=== PATIENT | male | born 1955 | race Caucasian/White ===

== ENCOUNTER → 2021-11-05 | Outpatient (CLI) | payer BC ==
--- NOTE | 2021-11-05 07:28 | CTL ---
EXAMINATION TYPE: CT Low Dose Lung DATE OF EXAM ORDERED: 11/05/2021 HISTORY: Long-term tobacco use. Lung cancer screening CT DLP: 100.[address] CTDI: 2.9 mGy Automated exposure control for dose reduction was used. SCREENING VISIT: Baseline COMPARISON: None TECHNIQUE: Low dose computed tomography scan was performed through the chest at 1 mm thick sections a nd reconstructed images in multiple planes at 1 mm and [address] DIAGNOSTIC QUALITY: Satisfactory FINDINGS: LUNG NODULES: None. LUNGS: COPD: Severity: None Fibrosis: Severity: None Lymph nodes: No greater than 1 cm Other findings: None RIGHT PLEURAL SPACE: Effusion: None Calcification: None Thickening: None Pneumothorax: None LEFT PLEURAL SPACE: Effusion: None Calcification: None Thickening: None Pneumothorax: None HEART: Heart Size: Upper limits of normal Coronary Calcification: Severe three-vessel coronary artery calcification and/or stents. Correlate cl inically. Pericardial Effusion: None OTHER FINDINGS: Upper abdomen: Liver is heterogeneously hypodense consistent with diffuse fatty infiltration. Bony thorax: Moderate multilevel degenerative spurring Supraclavicular region: None Other: Ascending aortic aneurysm up to 4.7 cm at level of right pulmonary artery series 5 image 28. IMPRESSION: No suspicious nodules. CT LUNG RAD AND CT CHEST RECOMMENDATION: Lung-Rad 1 Negative: Continue annual screening with LDCT in 12 months. S Modifier (other clinically significant findings): S Note is made of 4.7 cm ascending aortic aneurysm. Note is made of severe three-vessel coronary artery calcification and/or stents. Correlate clinically.
== END | disposition home or self-care (01) ==
LOC: RADCTMAIN 06:49
PROVIDERS: ATTEND Family Medicine
DX: Z12.2 Encounter for screening for malignant neoplasm of respiratory organs (principal); I71.2 Thoracic aortic aneurysm, without rupture; I25.10 Atherosclerotic heart disease of native coronary artery without angina pectoris; Z87.891 Personal history of nicotine dependence
CPT/HCPCS: 71271

== ENCOUNTER → 2021-11-05 | Outpatient (CLI) | payer BC ==
[2021-11-05 10:43] LABS: Basophils # (A) 0.03 X 10*3/uL (0.00-0.10); Basophils % (A) 0.4 %; Eosinophils # (A) 0.06 X 10*3/uL (0.04-0.35); Eosinophils % (A) 0.8 %; HCT 41.6 % (39.6-50.0); HGB 13.8 g/dL (13.0-17.0); Immature Grans, Automated 0.4 %; Lymphocytes # (A) 2.71 X 10*3/uL (0.90-5.00); Lymphocytes % (A) 34.8 %; MCH 33.7 pg (27.0-32.0); MCHC 33.2 g/dL (32.0-37.0); MCV 101.5 fL (80.0-97.0); Mean Platelet Volume 9.7 fL (9.5-12.2); Monocytes # (A) 0.84 X 10*3/uL (0.20-1.00); Monocytes % (A) 10.8 %; NRBC Per 100 WBC 0 /100 WBCS (0.0-0.0); Neutrophils # (A) 4.11 X 10*3/uL (1.80-7.70); Neutrophils % (A) 52.8 %; Platelet Count 204 X 10*3/uL (140-440); RDW 13.6 % (11.5-14.5); WBC 7.78 X 10*3/uL (4.50-10.00)
[2021-11-05 10:58] LABS: ALT 111 U/L (10-49); AST 142 U/L (14-35); African American GFR (CKD) 109.4 (60.0-200.0); Albumin 4.9 g/dL (3.8-4.9); Albumin/Globulin Ratio 1.96 (1.60-3.17); Alkaline Phosphatase 74 U/L (41-126); C Reactive Protein <0.30 mg/dL (0.00-0.80); Calcium 9.9 mg/dL (8.7-10.3); Carbon Dioxide 26.6 mmol/L (20.0-27.5); Chloride 101 mmol/L (96-109); Globulin 2.5 g/dL (1.6-3.3); Glucose 90 mg/dL (70-110); Non-African American GFR(CKD) 94.4 (60.0-200.0); Sodium 141 mmol/L (135-145); Total Protein 7.4 g/dL (6.2-8.2)
[2021-11-05 15:12] LABS: Erythrocyte Sedimentation Rate 9 mm/Hr (0-20)
[2021-11-05 17:31] LABS: Gliadin AB IgA, Deaminated NEGATIVE (NEGATIVE); Gliadin AB IgA, Unit 1.1 U/mL; Gliadin AB IgG, Deaminated NEGATIVE (NEGATIVE); Gliadin AB IgG, Unit <0.4 U/mL
== END | disposition home or self-care (01) ==
LOC: LABWHC1 07:07
PROVIDERS: ATTEND Nurse Practitioner Family
DX: K52.9 Noninfective gastroenteritis and colitis, unspecified (principal)
CPT/HCPCS: 36415; 80053; 83516; 85025; 85652; 86140

== ENCOUNTER → 2021-12-10 | Outpatient (CLI) | payer BC ==
--- NOTE | 2021-12-10 14:20 | US ---
EXAMINATION TYPE: US abdomen complete DATE OF EXAM: 12/10/2021 COMPARISON: NONE CLINICAL HISTORY: R74.01 ELEVATED LIVER TRANSAMINASE LEVELS. elevated liver enzymes EXAM MEASUREMENTS: Liver Length: 13.2 cm Gallbladder Wall: .2 cm CBD: .3 cm Spleen: 9.5 cm Right Kidney: 9.9 x 5.7 x 4.9 cm Left Kidney: 10.8 x 5.7 x 4.6 cm Pancreas: wnl Liver: Increased attenuation Gallbladder: No stones seen Evidence for sonographic Gonzalez's sign: No CBD: wnl Spleen: wnl Right Kidney: Cystic area upper pole seen measuring 1.1 x 1.1 x 1.4 cm. Left Kidney: wnl Upper IVC: wnl Abd Aorta: wnl IMPRESSION: 1. Right renal simple appearing cyst.
[2021-12-10 18:49] LABS: Ceruloplasmin 22.9 mg/dL (20.0-60.0)
[2021-12-10 18:58] LABS: % Iron Saturation 40.16 (15.00-50.00); African American GFR (CKD) 108.2 (60.0-200.0); Albumin/Globulin Ratio 2.08 (1.60-3.17); Anion Gap 16.4 mmol/L (10.00-18.00); BUN/Creat Ratio 12.06 Ratio (12.00-20.00); Blood Urea Nitrogen 9.8 mg/dL (9.0-27.0); Calcium 9.6 mg/dL (8.7-10.3); Carbon Dioxide 25.2 mmol/L (20.0-27.5); Globulin 2.4 g/dL (1.6-3.3); Non-African American GFR(CKD) 93.3 (60.0-200.0); Potassium 4.6 mmol/L (3.5-5.5); Total Bilirubin 0.7 mg/dL (0.30-1.20); Total Protein 7.3 g/dL (6.2-8.2)
[2021-12-10 19:00] LABS: Hepatitis B Surface Antigen Nonreactive (Nonreactive); Hepatitis C IgG Antibody Nonreactive (Nonreactive)
== END | disposition home or self-care (01) ==
LOC: RADUSWWP 12:32
PROVIDERS: ATTEND Internal Medicine Gastroenterology
DX: R74.01 Elevation of levels of liver transaminase levels (principal); N28.1 Cyst of kidney, acquired
CPT/HCPCS: 76700; 80053; 82103; 82390; 82728; 83516; 83540; 83550; 84165; 86038; 86803; 87340

== ENCOUNTER → 2022-03-25 | Outpatient (CLI) | payer BC, MEDICARE ==
[2022-03-25 18:20] LABS: Basophils # (A) 0.03 X 10*3/uL (0.00-0.10); Basophils % (A) 0.4 %; Eosinophils # (A) 0.14 X 10*3/uL (0.04-0.35); Eosinophils % (A) 1.6 %; HCT 39.5 % (39.6-50.0); Immature Grans, Automated 0.4 %; Lymphocytes # (A) 1.96 X 10*3/uL (0.90-5.00); Lymphocytes % (A) 22.9 %; MCH 34.1 pg (27.0-32.0); MCHC 35.4 g/dL (32.0-37.0); MCV 96.3 fL (80.0-97.0); Mean Platelet Volume 9.7 fL (9.5-12.2); Monocytes # (A) 0.78 X 10*3/uL (0.20-1.00); Monocytes % (A) 9.1 %; NRBC Per 100 WBC 0 /100 WBCS (0.0-0.0); Neutrophils # (A) 5.62 X 10*3/uL (1.80-7.70); Neutrophils % (A) 65.6 %; Platelet Count 165 X 10*3/uL (140-440); RDW 12.6 % (11.5-14.5); WBC 8.56 X 10*3/uL (4.50-10.00)
[2022-03-25 19:30] LABS: African American GFR (CKD) 108.6 (60.0-200.0); Albumin 4.7 g/dL (3.8-4.9); Albumin/Globulin Ratio 1.88 (1.60-3.17); Anion Gap 13.4 mmol/L (10.00-18.00); BUN/Creat Ratio 7.25 Ratio (12.00-20.00); Blood Urea Nitrogen 5.8 mg/dL (9.0-27.0); Calcium 9.4 mg/dL (8.7-10.3); Carbon Dioxide 25.6 mmol/L (20.0-27.5); Globulin 2.5 g/dL (1.6-3.3); Non-African American GFR(CKD) 93.7 (60.0-200.0); Potassium 5.2 mmol/L (3.5-5.5); Total Bilirubin 0.6 mg/dL (0.30-1.20); Total Protein 7.2 g/dL (6.2-8.2)
== END | disposition home or self-care (01) ==
LOC: LABWHC1 10:42
PROVIDERS: ATTEND Internal Medicine Interventional Cardiology
DX: I25.10 Atherosclerotic heart disease of native coronary artery without angina pectoris (principal); R06.09 Other forms of dyspnea; R74.01 Elevation of levels of liver transaminase levels; R77.8 Other specified abnormalities of plasma proteins
CPT/HCPCS: 36415; 80053; 85025; 85730

== ENCOUNTER → 2022-09-30 | Outpatient (CLI) | payer BC, MEDICARE ==
[2022-09-30 15:00] LABS: ALT 69 U/L (10-49); AST 90 U/L (14-35); Chol/HDL Ratio 1.85 Ratio; LDL Cholesterol,Calculated 51.2 mg/dL (0.0-131.0); VLDL Calculation 19.84 mg/dL (5.00-40.00)
== END | disposition home or self-care (01) ==
LOC: LABWHC1 08:06
PROVIDERS: ATTEND Internal Medicine Interventional Cardiology
DX: E78.2 Mixed hyperlipidemia (principal)
CPT/HCPCS: 36415; 80061; 84450; 84460

== ENCOUNTER → 2022-10-21 | Outpatient (CLI) | payer BC, MEDICARE ==
[2022-10-21 15:52] LABS: African American GFR (CKD) 91.1 (60.0-200.0); Albumin 4.8 g/dL (3.8-4.9); Albumin/Globulin Ratio 1.88 (1.60-3.17); Anion Gap 10.8 mmol/L (10.00-18.00); BUN/Creat Ratio 20.1 Ratio (12.00-20.00); Blood Urea Nitrogen 20.1 mg/dL (9.0-27.0); Calcium 10.4 mg/dL (8.7-10.3); Carbon Dioxide 27.4 mmol/L (20.0-27.5); Globulin 2.5 g/dL (1.6-3.3); Non-African American GFR(CKD) 78.6 (60.0-200.0); Potassium 4.5 mmol/L (3.5-5.5); Total Bilirubin 0.4 mg/dL (0.30-1.20); Total Protein 7.3 g/dL (6.2-8.2)
== END | disposition home or self-care (01) ==
LOC: LABWHC1 07:52
PROVIDERS: ATTEND Family Medicine
DX: R94.5 Abnormal results of liver function studies (principal)
CPT/HCPCS: 36415; 80053

== ENCOUNTER → 2023-08-02 | Outpatient (CLI) | payer BC, MEDICARE ==
--- NOTE | 2023-08-04 10:50 | MR ---
EXAMINATION TYPE: MR shoulder RT wo con DATE OF EXAM: 08/02/2023 COMPARISON: None HISTORY: Right shoulder pain since fall on 02-03-23. TECHNIQUE: Multiplanar, multisequence imaging of the right shoulder is performed without contrast. FINDINGS: There is a nearly healed nondisplaced avulsion fracture of the greater tuberosity of the left humerus . There is marked osteoarthritic change of the AC joint with marked shoulder impingement and superior subluxation of the glenohumeral joint. There is a complete full-thickness tear of the supraspinatus tendon with retraction of the musculoten dinous junction medially. There is intrasubstance tearing of the infraspinatus muscle with mild retra ction medially. The subscapularis tendon is intact. There is abnormal signal intensity within the proximal long head of the biceps consistent with partia l tear but the biceps anchor is intact. There is a small left glenohumeral joint effusion. Grossly the cartilaginous labrum is intact. There is mild fluid in the subcutaneous deltoid bursa. IMPRESSION: 1. Remote and nearly healed nondisplaced fracture of the greater tuberosity of the humerus. 2. Marked shoulder impingement with superior subluxation of the glenohumeral joint and marked degener ation of the AC joint. 3. Rotator cuff tears involving the supraspinatus and infraspinatus tendons as described above. 4. Small glenohumeral joint effusion and small amount of fluid in the deltoid bursa. 5. Biceps anchor is intact but there is intrasubstance tearing of the proximal aspect of the tendon.
== END | disposition home or self-care (01) ==
LOC: RADMRIMAIN 15:16
PROVIDERS: ATTEND Orthopaedic Surgery
DX: M75.101 Unspecified rotator cuff tear or rupture of right shoulder, not specified as traumatic (principal); M25.811 Other specified joint disorders, right shoulder; M67.813 Other specified disorders of tendon, right shoulder; M25.411 Effusion, right shoulder

== ENCOUNTER 2023-10-06 05:45 | Day surgery (SDC) | payer BC, MEDICARE ==
[2023-10-03 09:59] VITALS: BMI 28.0
--- NOTE | 2023-10-05 08:48 | P.HPOR ---
History of Present Illness H&P Date: 10/05/23 Chief Complaint: Right shoulder pain The patient is a 67-year-old retired gentleman who presents with right shoulder pain after an injury January 2023 after a fall. He is having pain with overhead activity and at night. He's tried medications along with home exercises and inj ection without much relief. He notes daily pain that limits him. Review of Systems As per HPI Past Medical History Past Medical History: Coronary Artery Disease (CAD), Hyperlipidemia, Hypertension, Osteoarthritis (OA), Sleep Apnea/CPAP/BIPAP Additional Past Medical History / Comment(s): insomnia, lumbar radiculopathy, uses CPAP few times/week, spinal stenosis, missed a step & fell 01/29 landing on Rt. hip, Rt.shoulder,LOC x 30 seconds History of Any Multi-Drug Resistant Organisms: None Reported Past Surgical History: Appendectomy, Heart Catheterization With Stent Additional Past Surgical History / Comment(s): Rt. great toe fusion, partial Rt. hip replacement 01/29, Lt. rotator cuff repair Past Anesthesia/Blood Transfusion Reactions: No Reported Reaction Date of Last Stent Placement:: 03/30/22 Smoking Status: Former smoker - Past Family History Father Family Medical History: Congestive Heart Failure (CHF) Mother Family Medical History: Coronary Artery Disease (CAD) Additional Family Medical History / Comment(s): CABG Brother(s) Additional Family Medical History / Comment(s): 2 briothers and 1 sister CABG Medications and Allergies Home Medications Medication Instructions Recorded Confirmed Type Aspirin [Adult Low Dose Aspirin EC] 81 mg PO DAILY 10/03/23 10/03/23 History Atorvastatin [Lipitor] 40 mg PO DAILY 10/03/23 10/03/23 History Clopidogrel [Plavix] 75 mg PO DAILY 10/03/23 10/03/23 History Dicyclomine [Bentyl] 20 mg PO QID PRN 10/03/23 10/03/23 History Escitalopram [Lexapro] 20 mg PO QAM 10/03/23 10/03/23 History Ezetimibe [Zetia] 10 mg PO DAILY 10/03/23 10/03/23 History Folic Acid 1 mg PO DAILY 10/03/23 10/03/23 History Ibuprofen [Motrin] 800 mg PO Q8H PRN 10/03/23 10/03/23 History Nitroglycerin Sl Tabs [Nitrostat] 0.4 mg SUBLINGUAL Q5M PRN 10/03/23 10/03/23 History Pantoprazole [Protonix] 40 mg PO DAILY 10/03/23 10/03/23 History Sildenafil Citrate [Viagra] 100 mg PO DAILY PRN 10/03/23 10/03/23 History lisinopriL [Zestril] 5 mg PO QAM 10/03/23 10/03/23 History methocarbamoL 750 mg PO BID PRN 10/03/23 10/03/23 History ondansetron HCL [Zofran] 8 mg PO Q8HR PRN 10/03/23 10/03/23 History traZODone HCL [Desyrel] 100 mg PO HS 10/03/23 10/03/23 History Allergies Allergy/AdvReac Type Severity Reaction Status Date / Time No Known Allergies Allergy Verified 10/03/23 08:50 Physical Examination - Shoulder right Tenderness with palpation: anterior, bicipital groove Pain: with abduction, with forward flexion ROM: abduction: 140 degrees ROM: internal rotation: lower lumbar ROM: external rotation: 50 degrees Crepitus with motion: Yes Strength: abduction: 4/5 Strength: external rotation: 4/5 Tests: internal impingement tests: positive, external impingment tests: positive Results The patient is a well-developed well-nourished male approximately 5 foot 9, 185 pounds of mesomorphic habitus. HEENT exam is nonfocal, neck is supple. He's tender about the right shoulder anterior subacromial space. Moderate crepitus is noted. Impingement test, Neer test and speed test are positive. His distal neurovascular exam appears intact in the right upper extremity. - Diagnostic results Shoulder MRI: image reviewed (Right shoulder MRI shows evidence of a rotator cuff tear along with a cold greater tuberosity fracture. Proximal biceps intrasubstance tearing is also noted.) Assessment and Plan Assessment: Right symptomatic rotator cuff tear Right proximal bicipital tendinosis Plan: I talked to the patient regarding his condition along with treatment options. At this point he remains quite symptoms despite previous conservative measures. After a thorough discussion he opts to proceed with surgery. We'll plan to proceed with right shoulder arthroscopy with probable subacromial decompression, rotator cuff debridement versus repair, possible biceps tenotomy versus tenodesis. We will likely perform that as an outpatient procedure. Risks and benefits were discussed at length in layman's terms. We will likely reinstitute his Plavix postoperatively.
[2023-10-06] MEDS ORDERED: ONDANSETRON 4 MG/2 ML VIAL ONE (06:29)
[2023-10-06] MEDS: LACTATED RINGERS 1,000 ML IV SCH (06:37)
[2023-10-06] MEDS: DEXAMETHASONE SOD PHOSPHATE 4 MG/ML 1 ML VIAL IV ONE (06:38)
[2023-10-06] MEDS: ONDANSETRON 4 MG/2 ML VIAL IVP ONE (06:38)
[2023-10-06] MEDS: MIDAZOLAM 2 MG/2 ML VIAL IVP ONE (06:43)
--- NOTE | 2023-10-06 06:56 | P.ANPRN ---
Procedure Note - Anesthesia - Nerve Block Performed Right Interscalene Single Time Out Performed: Yes Date of Procedure: 10/06/23 Procedure Start Time: 06:46 Procedure Stop Time: 06:52 Location of Patient: PreOp Indication: Acute Post-Operative Pain, Dx/Pain Location (Right shoulder pain ), Requested by Surgeon Sedation Type: Sedate with meaningful contact maintained Preparation: Sterile Prep Position: Supine Catheter: None Needle Types: Pajunk Needle Gauge: 21 Ultrasound used to visualize needle placement: Yes Ultrasound used to observe medication spread: Yes Injectate: 0.5% Ropivacaine (see comment for volume) (20ml with 4mg dexamethasone) Blood Aspirated: No Pain Paresthesia on Injection Noted: No Resistance on Injection: Normal
[2023-10-06] MEDS ORDERED: MIDAZOLAM 2 MG/2 ML VIAL IV PRN (07:00)
[2023-10-06] MEDS ORDERED: HYDROmorphone 0.5 MG/0.5 ML SYRINGE IVP PRN (07:00)
[2023-10-06 07:11] VITALS: RESP 16
[2023-10-06] MEDS ORDERED: PROPOFOL 10 MG/ML 20 ML VIAL IV ONE (07:29)
[2023-10-06] MEDS ORDERED: PHENYLEPHRINE 10 MG/ML VIAL ONE (07:29)
[2023-10-06] MEDS ORDERED: NEOSTIGMINE 1 MG/ML 10 ML VIAL ONE (07:29)
[2023-10-06] MEDS ORDERED: DEXAMETHASONE SOD PHOSPHATE 4 MG/ML 1 ML VIAL ONE (07:29)
[2023-10-06] MEDS ORDERED: ROPIVACAINE 5 MG/ML 30 ML VIAL ONE (07:29)
[2023-10-06] MEDS ORDERED: fentaNYL (PF) 50 MCG/ML 2 ML AMP ONE (07:29)
[2023-10-06] MEDS ORDERED: PHENYLEPHRINE-0.9% NACL SYG 1,000 MCG/10 ML SYRINGE ONE (07:29)
[2023-10-06] MEDS ORDERED: MIDAZOLAM 2 MG/2 ML VIAL ONE (07:29)
[2023-10-06] MEDS ORDERED: ROCURONIUM 10 MG/ML (5 ML VIAL) IV ONE (07:29)
[2023-10-06] MEDS ORDERED: LIDOCAINE 1% INJ 10MG/ML (20 ML MDV) ONE (07:29)
[2023-10-06] MEDS ORDERED: GLYCOPYRROLATE 0.2 MG/ML 2 ML VIAL ONE (07:29)
[2023-10-06] MEDS ORDERED: SUCCINYLCHOLINE CHLORIDE 200 MG/10 ML VIAL IV ONE (07:29)
[2023-10-06] MEDS: EPINEPHrine (PF) 1 ML in SODIUM CHLORIDE 0.9% IRRIGATIO 3,000 ML IRRIGATION ONE ×4 (07:33)
[2023-10-06] MEDS: LACTATED RINGERS 1,000 ML IV ONE (09:14)
--- NOTE | 2023-10-06 09:39 | P.OP ---
Date of Procedure: 10/06/23 Preoperative Diagnosis: Symptomatic right rotator cuff tear/impingement Postoperative Diagnosis: 5 cm rotator cuff tear/acromioclavicular joint arthritis/proximal biceps rupture Procedure(s) Performed: Right shoulder arthroscopic subacromial decompression/distal clavicular resection/rotator cuff repair Implants: Arthrex 4.75 mm swivel lock anchor 2, 5.5 mm swivel lock anchor 2 Anesthesia: RENETTA, regional Surgeon: Lavon Adams Condenser Tester #1: Geovani Campos Estimated Blood Loss (ml): 10 Pathology: none sent Condition: stable Disposition: PACU Indications for Procedure: The patient's a 67-year-old male who presents with progressive right shoulder pain and weakness after a previous injury despite conservative measures. He discussion of the risks and benefits of operative intervention versus continued conservative measures was made with patient. He opted to proceed with surgery. Operative risks to include infection, neurovascular injury, development of blood clots, possible tendon rerupture, possible postoperative stiffness, possible need for subsequent procedures was discussed. Informed consent was obtained. Operative Findings: As below Description of Procedure: The patient was brought to the operating room, and after induction of general anesthesia was placed in a beachchair position. A preoperative interscalene block was placed for postoperative analgesia. I examined the [facility] shoulder. There was no gross block to passive motion or gross glenohumeral instability. The [facility] upper extremity was prepped and draped in normal fashion. The bony outlines the acromion, distal clavicle, and coracoid process were outlined with a skin marker. The glenohumeral joint was inflated with 50 mL of saline utilizing a spinal needle from posterior approach. A posterior portal was made through a 5 mm skin incision 1 cm medial and inferior to the posterior lateral border time. A blunt trocar was used to easily into the joint. Diagnostic arthroscopy was performed. An anterior portal was made just lateral to the coracoid process entering the joint above the subscapularis tendon. The subscapularis tendon appeared to be intact. Anterior labrum was intact. The inferior recess was inspected. The posterior labrum was intact. The proximal biceps was noted to have previously been ruptured. The stump was debrided with a motorized shaver on the superior labrum back to stable base. On inspection the rotator cuff, a large retracted tear involving the supraspinatus and infraspinatus was noted. The arthroscope was then placed into the subacromial space. A lateral portal was made 2 centimeters inferior to the anterior lateral border of the acromion. The rotator cuff was then mobilized with a traction suture. I was able to bring this back to the medial aspect of the greater tuberosity. The soft tissue on the undersurface of the acromion was debrided with a motorized shaver and electrocautery clearly defining the anterior medial and lateral borders as well as the distal clavicle. An anterior inferior acromioplasty was performed with a motorized layla starting anterolateral, then extending this posteriorly, then extending this medially. I converted to a flat acromion and this was verified in the posterior and lateral viewing portals. Significant distal clavicular hypertrophy was noted impinging the subacromial space. The distal 8 mm of the clavicle was resected with motorized layla.The greater tuberosity was lightly decorticating with a shaver down to a bleeding bony surface. An accessory superior lateral portal was made just off the lateral edge of the acromion for anchor placement. 2 anchors were then placed just off the articular surface with the appropriate starting awl. 4.75 mm anchors preloaded with #2 fiber tape were placed. Good purchase was obtained. These fiber tapes were then passed the rotator cuff with a scorpion suture passer. A lateral row was created crisscrossing these tapes. 5.5 mm swivel lock anchors x2 were placed laterally. Good purchase was obtained. Final arthroscopic view showed adequate compression at the footprint. The arthroscope was then removed. The portals were closed with simple 3-0 nylon sutures. A sterile dressing was applied in addition to an abductor brace. The patient was then awoken from general anesthesia and transferred to recovery room in good condition. Blood loss was estimated at 10 mL. No complications were incurred. Sponge and needle counts were correct in the case. Geovani MURDOCK assisted and the major components of the case to include arm positioning, anchor placement, and rotator cuff repair.
[2023-10-06 10:21] VITALS: TEMP 97
[2023-10-06 10:59] VITALS: BP 110/71
[2023-10-06 11:00] VITALS: PULSE 96
== END 2023-10-06 11:15 | disposition home or self-care (01) ==
LOC: OR 05:45
PROVIDERS: ATTEND Orthopaedic Surgery
DX: M75.41 Impingement syndrome of right shoulder (principal); M75.101 Unspecified rotator cuff tear or rupture of right shoulder, not specified as traumatic; M19.011 Primary osteoarthritis, right shoulder; G89.18 Other acute postprocedural pain; I10 Essential (primary) hypertension; E78.5 Hyperlipidemia, unspecified; I25.10 Atherosclerotic heart disease of native coronary artery without angina pectoris; G47.33 Obstructive sleep apnea (adult) (pediatric); Z90.49 Acquired absence of other specified parts of digestive tract; Z96.641 Presence of right artificial hip joint; Z87.891 Personal history of nicotine dependence; Z82.49 Family history of ischemic heart disease and other diseases of the circulatory system; Z79.82 Long term (current) use of aspirin; Z79.02 Long term (current) use of antithrombotics/antiplatelets; Z79.899 Other long term (current) drug therapy; Z98.890 Other specified postprocedural states
CPT/HCPCS: 29827; 29826; 29824; 64415; C1713 ×3; C1894; J2250; J0330; J1100; J2710; J0690; J2405; J0171; J2001; J3010; J2795; J2704; J2371 ×2

== ENCOUNTER → 2023-11-10 | Outpatient (CLI) | payer BC, MEDICARE ==
[2023-11-11 03:48] LABS: HCT 38.3 % (39.6-50.0); HGB 13.1 g/dL (13.0-17.0); MCH 34.2 pg (27.0-32.0); MCHC 34.2 g/dL (32.0-37.0); Mean Platelet Volume 9.3 FL (9.5-12.2); NRBC Per 100 WBC 0 X 10*3/uL (0.00-0.01); Platelet Count 259 X 10*3/uL (140-440); RBC 3.83 X 10*6/uL (4.40-5.60); RDW 13.1 % (11.5-14.5)
[2023-11-11 04:23] LABS: Blood Urea Nitrogen 11.6 mg/dL (9.0-27.0); Calcium 9.5 mg/dL (8.7-10.3); Chloride 95 mmol/L (96-109); Glucose 79 mg/dL (70-110); Potassium 4.2 mmol/L (3.5-5.5); Sodium 134 mmol/L (135-145)
[2023-11-11 04:42] LABS: NT-Pro-B-Type Natriuretic Pept 51 pg/mL (0-125)
== END | disposition home or self-care (01) ==
LOC: LABWHC1 14:13
PROVIDERS: ATTEND Nurse Practitioner Acute Care
DX: R06.02 Shortness of breath (principal)
CPT/HCPCS: 36415; 80048; 83880; 84484; 85027; 85379

== ENCOUNTER → 2023-11-15 | Outpatient (CLI) | payer BC, MEDICARE ==
--- NOTE | 2023-11-15 19:12 | CA ---
Transthoracic Echo Report Name: Keaton Powers Age: 67 Gender: M : 1955 Exam Date: 11/15/2023 15:29 Exam Location: [place] Ht (in): 72 Wt (lb): 185 Ordering Physician: Mannie Resendiz DO ([email or web address]) Attending/Referring Phys: [employer] Field Service Technician Kamille Cadet RDCS Procedure CPT: Indications: R06.02 SHORTNESS OF BREATH Cardiac Hx: Technical Quality: Contrast 1: Total Dose (mL): Contrast 2: Total Dose (mL): MEASUREMENTS (Male / Female) Normal Values 2D ECHO LV Diastolic Diameter PLAX 5.0 cm 4.2 - 5.9 / 3.9 - 5.3 cm LV Systolic Diameter PLAX 3.1 cm IVS Diastolic Thickness 0.9 cm 0.6 - 1.0 / 0.6 - 0.9 cm LVPW Diastolic Thickness 0.9 cm 0.6 - 1.0 / 0.6 - 0.9 cm LV Relative Wall Thickness 0.4 LA Systolic Diameter LX 3.0 cm 3.0 - 4.0 / 2.7 - 3.8 cm LV Diastolic Volume MOD 4C 102.5 cm??? LV Systolic Volume MOD 4C 46.7 cm??? LV Ejection Fraction MOD 4C 54.5 % LV Diastolic Length 4C 8.8 cm LV Systolic Length 4C 7.2 cm LV Diastolic Volume MOD 2C 108.3 cm??? LV Systolic Volume MOD 2C 54.1 cm??? LV Ejection Fraction MOD 2C 50.1 % LV Diastolic Length 2C 8.9 cm LV Systolic Length 2C 7.7 cm M-MODE Aortic Root Diameter MM 4.0 cm LA Systolic Diameter MM 2.5 cm LA Ao Ratio MM 0.6 DOPPLER AV Peak Velocity 118.0 cm/s AV Peak Gradient 5.6 mmHg AV Mean Velocity 85.5 cm/s AV Mean Gradient 3.3 mmHg AV Velocity Time Integral 30.4 cm AI Peak Velocity 422.2 cm/s AI Peak Gradient 71.3 mmHg AI Pressure Half Time 1022.1 ms LVOT Peak Velocity 76.7 cm/s LVOT Peak Gradient 2.4 mmHg LVOT Velocity Time Integral 16.4 cm Mitral E Point Velocity 36.3 cm/s Mitral A Point Velocity 67.3 cm/s Mitral E to A Ratio 0.5 MV Deceleration Time 316.7 ms TR Peak Velocity 232.8 cm/s TR Peak Gradient 21.7 mmHg FINDINGS Left Ventricle Left ventricular ejection fraction is estimated at 50-55 %. Left ventricular wall thickness normal. No obvious regional wall motion abnormalities. Left ventricular cavity size normal. Right Ventricle Normal right ventricular size and function. Right ventricular systolic pressure within normal limits. Right Atrium Normal right atrial size. Left Atrium Normal left atrial size. Mitral Valve Structurally normal mitral valve. Aortic Valve Trileaflet aortic valve. Trace to mild aortic regurgitation. No aortic stenosis. Tricuspid Valve Structurally normal tricuspid valve. Trace to mild tricuspid regurgitation. Pulmonic Valve Structurally normal pulmonic valve. Trace pulmonic regurgitation. Pericardium No pericardial or pleural effusion. Aorta Moderately dilated aortic annulus. CONCLUSIONS Technically difficult study for interpretation was poorly visualized endocardial Normal LV systolic function Mild aortic regurgitation Previewed by: Dr. Federico Mejia MD (Electronically Signed) Final Date: 15 Nov 2023 19:12
== END | disposition home or self-care (01) ==
LOC: RADECHMAIN 14:54
PROVIDERS: ATTEND Internal Medicine
DX: I35.1 Nonrheumatic aortic (valve) insufficiency (principal); R06.02 Shortness of breath
CPT/HCPCS: 93306

== ENCOUNTER → 2024-03-21 | Outpatient (CLI) | payer BC, MEDICARE ==
[2024-03-21 15:23] LABS: Basophils # (A) 0.04 X 10*3/uL (0.00-0.10); Basophils % (A) 0.5 %; Eosinophils # (A) 0.02 X 10*3/uL (0.04-0.35); Eosinophils % (A) 0.2 %; HCT 40.7 % (39.6-50.0); HGB 13.8 g/dL (13.0-17.0); Lymphocytes # (A) 1.46 X 10*3/uL (0.90-5.00); Lymphocytes % (A) 17.2 %; MCHC 33.9 g/dL (32.0-37.0); MCV 97.4 FL (80.0-97.0); Mean Platelet Volume 9.2 FL (9.5-12.2); Monocytes # (A) 0.71 X 10*3/uL (0.20-1.00); Monocytes % (A) 8.4 %; NRBC Per 100 WBC 0 X 10*3/uL (0.00-0.01); Neutrophils # (A) 6.23 X 10*3/uL (1.80-7.70); Neutrophils % (A) 73.3 %; Platelet Count 265 X 10*3/uL (140-440); RBC 4.18 X 10*6/uL (4.40-5.60); RDW 13.2 % (11.5-14.5); WBC 8.49 X 10*3/uL (4.50-10.00)
[2024-03-21 15:30] LABS: ALT 44 U/L (10-49); AST 71 U/L (14-35); Albumin 4.6 g/dL (3.8-4.9); Albumin/Globulin Ratio 1.64 Ratio (1.60-3.17); Alkaline Phosphatase 100 U/L (41-126); Blood Urea Nitrogen 9.7 mg/dL (9.0-27.0); Calcium 9.8 mg/dL (8.7-10.3); Carbon Dioxide 23.5 mmol/L (21.6-31.8); Chloride 99 mmol/L (96-109); Chol/HDL Ratio 2.03 Ratio; Globulin 2.8 g/dL (1.6-3.3); Glucose 100 mg/dL (70-110); LDL Cholesterol,Calculated 67.5 mg/dL (0.0-131.0); Potassium 4.1 mmol/L (3.5-5.5); Sodium 139 mmol/L (135-145); Total Protein 7.4 g/dL (6.2-8.2)
== END | disposition home or self-care (01) ==
LOC: LABWHC1 08:16
PROVIDERS: ATTEND Family Medicine
DX: Z00.00 Encounter for general adult medical examination without abnormal findings (principal)
CPT/HCPCS: 36415; 80053; 80061; 85025

== ENCOUNTER 2024-03-29 10:03 | Day surgery (SDC) | payer BC, MEDICARE ==
[2024-03-26 10:39] VITALS: BMI 28.0
[~2024-03-29 10:03] MED LIST: ALPRAZolam 0.25 MG TAB PO PRN; ALPRAZolam 0.5 MG TAB PO PRN; ASPIRIN 325 MG TAB PO STA; HEPARIN SODIUM,PORCINE (1 ML) 2,500 UNIT in SODIUM CHLORIDE 0.9% 250 ML IRRIGATION PRN; HEPARIN SODIUM,PORCINE 10,000 UNIT in SODIUM CHLORIDE 0.9% 1,000 ML IRRIGATION PRN; NITROGLYCERIN SL TABS 0.4 MG TAB SUBLINGUAL PRN
[2024-03-29] MEDS: SODIUM CHLORIDE 0.9% 1,000 ML in EMPTY BAG 1 BAG IV SCH (10:09)
[2024-03-29] MEDS: IV FLUID CONTINUATION 1,000 ML IV ONE (10:13)
[2024-03-29 10:20] VITALS: RESP 16; TEMP 98.3
[2024-03-29] MEDS: MIDAZOLAM 2 MG/2 ML VIAL IVP ONE (12:15)
[2024-03-29] MEDS: fentaNYL (PF) 50 MCG/ML 2 ML AMP IVP ONE (12:15)
[2024-03-29] MEDS: LIDOCAINE 1% INJ 10MG/ML (20 ML MDV) SQ ONE (12:22)
[2024-03-29] MEDS: VERAPAMIL SYRINGE (5 MG/10 ML) INTRAARTER ONE (12:24)
[2024-03-29] MEDS: HEPARIN SODIUM 1,000 UN/ML (10ML VL) IVP ONE (12:29)
[2024-03-29] MEDS: IOPAMIDOL-370 100ML BTL INJ ONE (12:43)
--- NOTE | 2024-03-29 12:50 | P.CARDCATH ---
Description of Procedure: PROCEDURES PERFORMED: Left heart catheterization, bilateral coronary angiography, ultrasound guided arterial access INDICATION: unstable angina CONSENT:I have discussed the risks, benefits and alternative therapies for the above-mentioned procedure and for both sedation/analgesia as well as necessary blood product administration, if indicated, as they pertain to this patient. The patient has indicated understanding and acceptance of the risks and procedures discussed. PROCEDURE: After the risks, benefits and alternatives of the above mentioned procedure explained in detail with the patient, informed consent was obtained. Patient was taken to the catheterization lab and prepped and draped in usual fashion. Ultrasound guidance was used to assess for arterial access. 1% lidocaine was used to anesthetize the right radial artery. A 6-Nigerien sheath was placed in the right radial artery using modified Seldinger technique and ultrasound guidance. There was some tortuosity of the right subclavian however able to cannulate. Left coronary angiography was performed with a 5-Nigerien JL 3.5 catheter and right coronary angiography was performed with a 5-Nigerien FR5 catheter in various views. A 5-Nigerien FR5 catheter was inserted into the left ventricle and pressure measurements were obtained. The right radial sheath was removed and a TR band was placed with hemostasis achieved. The patient tolerated the procedure well. Patient was transported back to the post catheterization holding area in stable condition. Conscious Sedation: Patient was monitored under the direct supervision of myself for conscious sedation using Versed and fentanyl for a total duration of [] minutes HEMODYNAMICS: Aorta: 162/78 LV: 144/12, LVEDP 26 SELECTIVE CORONARY ARTERIOGRAPHY: LEFT MAIN: The left main is a large caliber vessel which bifurcates into the LAD and circumflex. There is mild diffuse 20-30% left main stenosis LEFT ANTERIOR DESCENDING CORONARY ARTERY: LAD is a large caliber vessel which wraps around to the apex. There is a mid LAD stent which is patent with a more proximal 30-40% stenosis. There is 30% mid LAD stenosis and otherwise mild luminal irregularities. LEFT CIRCUMFLEX CORONARY ARTERY: Left circumflex is a moderate caliber vessel with mild luminal irregularities. RIGHT CORONARY ARTERY: The right coronary artery is a large caliber vessel which gives off a PDA and PLV branch and is the dominant vessel. There is proximal and mid RCA 30% stenosis and otherwise mild luminal irregularities. FINAL IMPRESSION: 1. CAD as described above including 20-30% left main stenosis, proximal LAD 30- 40% stenosis, mid LAD 30% stenosis, patent mid LAD stent, proximal and mid RCA 30% stenosis 2. Significantly elevated left sided filling pressures PLAN: 1. Aggressive risk factor modification per most recent ACC/AHA guidelines. 2. Add diuretic and monitor response
[2024-03-29 16:15] VITALS: BP 132/65; PULSE 115
== END 2024-03-29 15:55 | disposition home or self-care (01) ==
LOC: CATHCVL 10:03
PROVIDERS: ATTEND Internal Medicine
DX: I25.110 Atherosclerotic heart disease of native coronary artery with unstable angina pectoris (principal); I10 Essential (primary) hypertension; E78.5 Hyperlipidemia, unspecified; Z87.891 Personal history of nicotine dependence; Z95.5 Presence of coronary angioplasty implant and graft
CPT/HCPCS: 93458

== ENCOUNTER → 2024-06-18 | Outpatient (CLI) | payer BC, MEDICARE ==
--- NOTE | 2024-06-18 22:22 | CTL ---
EXAMINATION TYPE: CT Low Dose Lung DATE OF EXAM: 06/18/2024 3:43 PM COMPARISON: 11/05/2021. CLINICAL INDICATION: Male, 68 years old with history of Z12.2 Screening; personal hx of nicotine depe ndence 1ppd X 45 years not current smoker quit in 2021, history of tobacco use. TECHNIQUE: Multiple axial non-contrast scans were obtained from approximately the lung apices through the upper abdomen. Coronal and sagittal reformatted images were obtained. Low dose technique was uti lized. MIP were created on a separate workstation and submitted for review. CT DLP: 93.50 mGycm, Automated exposure control for dose reduction was used. CT Contrast: Contrast used: None Oral contrast used: None FINDINGS: Lack of intravenous contrast and low dose technique limits the evaluation of the vascular and soft ti ssue structures. LUNGS: No evidence of pulmonary fibrosis. No evidence of focal consolidation, pneumothorax or pleural effusion. Centrilobular emphysema changes. Nodules: RUL: None. RML: None. RLL: None. HUEY: None. LLL: None. AIRWAY: Patent and unremarkable. HEART: Size within normal limits.Atherosclerosis of the arterial vasculature. MEDIASTINUM: No gross evidence of adenopathy. VASCULATURE: No aortic aneurysm. MUSCULOSKELETAL: Mild disc degeneration changes are present throughout the thoracolumbar spine. SOFT TISSUES/LYMPH NODES: Unremarkable. LOWER NECK: No significant findings. UPPER ABDOMEN: No significant findings. IMPRESSION: 1. No clinically significant pulmonary nodules. 2. Mild emphysema. 3. Moderate coronary artery atherosclerosis. CT LUNG RAD AND CT CHEST RECOMMENDATION: Lung-Rad 2 Benign Appearance or Behavior: Continue annual sc reening with LDCT in 12 months. S Modifier (other clinically significant findings): None Recommend smoking cessation (if current smoker), or continuation of smoking cessation (if prior smoke r). Annual screening for lung cancer with low-dose computed tomography is recommended in adults ages 55 to 77 years who have a 30 pack-year smoking history and currently smoke or have quit within the pa st 15 years. Screening should be discontinued once a person has not smoked for 15 years or develops a health problem that substantially limits life expectancy or the ability or willingness to have curat sebastien lung surgery. Lung rads 2021 [email or web address] [facility], , 06/18/2024 10:19 PM
== END | disposition home or self-care (01) ==
LOC: RADCTMAIN 14:54
PROVIDERS: ATTEND Family Medicine
DX: Z12.2 Encounter for screening for malignant neoplasm of respiratory organs (principal); J43.9 Emphysema, unspecified; Z87.891 Personal history of nicotine dependence; I25.10 Atherosclerotic heart disease of native coronary artery without angina pectoris
CPT/HCPCS: 71271

== ENCOUNTER 2024-07-17 07:43 | Inpatient (IN) | payer BC, MEDICARE ==
--- NOTE | 2024-07-17 08:05 | ED ---
General Adult HPI - General Chief complaint: Weakness Stated complaint: Weakness Time Seen by Provider: 07/17/24 07:44 Source: patient, family, EMS, RN notes reviewed, old records reviewed Mode of arrival: EMS Limitations: no limitations - History of Present Illness Initial comments: 68-year-old male presenting for evaluation of fever, urinary frequency and urgency. Patient was treated with oral antibiotics several weeks ago for bladder infection. Believes this may have returned. Patient developed generalized weakness and had an episode of confusion last night according to his . He may have fallen although the patient does not specifically recall the events and denies current pain complaints. He completed a course of oral antibiotics prescribed by his primary care. He did not have urine test or urine culture to confirm diagnosis at that time. No cough or upper respiratory symptoms. - Related Data Home Medications Medication Instructions Recorded Confirmed Aspirin [Adult Low Dose Aspirin EC] 81 mg PO DAILY 10/03/23 03/29/24 Atorvastatin [Lipitor] 40 mg PO DAILY 10/03/23 03/29/24 Clopidogrel [Plavix] 75 mg PO DAILY 10/03/23 03/29/24 Dicyclomine [Bentyl] 20 mg PO QID PRN 10/03/23 03/26/24 Escitalopram [Lexapro] 20 mg PO QAM 10/03/23 03/29/24 Ezetimibe [Zetia] 10 mg PO DAILY 10/03/23 03/29/24 Folic Acid 1 mg PO DAILY 10/03/23 03/29/24 Nitroglycerin Sl Tabs [Nitrostat] 0.4 mg SUBLINGUAL Q5M PRN 10/03/23 03/26/24 Pantoprazole [Protonix] 40 mg PO DAILY 10/03/23 03/29/24 lisinopriL [Zestril] 5 mg PO QAM 10/03/23 03/29/24 ondansetron HCL [Zofran] 8 mg PO Q8HR PRN 10/03/23 03/26/24 traZODone HCL [Desyrel] 100 mg PO HS 10/03/23 03/26/24 Previous Rx's Medication Instructions Recorded Furosemide [Lasix] 20 mg PO DAILY #90 tab 03/29/24 Allergies Allergy/AdvReac Type Severity Reaction Status Date / Time No Known Allergies Allergy Verified 07/17/24 07:50 Review of Systems ROS Statement: Those systems with pertinent positive or pertinent negative responses have been documented in the HPI. ROS Other: All systems not noted in ROS Statement are negative. Past Medical History Past Medical History: Coronary Artery Disease (CAD), Hyperlipidemia, Hypertension, Osteoarthritis (OA), Sleep Apnea/CPAP/BIPAP Additional Past Medical History / Comment(s): insomnia, lumbar radiculopathy, uses CPAP few times/week, spinal stenosis, missed a step & fell 01/29 landing on Rt. hip, Rt.shoulder,LOC x 30 seconds History of Any Multi-Drug Resistant Organisms: None Reported Past Surgical History: Appendectomy, Heart Catheterization With Stent Additional Past Surgical History / Comment(s): Rt. great toe fusion, partial Rt. hip replacement 01/29, Lt. rotator cuff repair Past Anesthesia/Blood Transfusion Reactions: No Reported Reaction Date of Last Stent Placement:: 03/30/22 Past Psychological History: Anxiety Smoking Status: Former smoker Past Alcohol Use History: Daily Past Drug Use History: None Reported - Past Family History Father Family Medical History: Congestive Heart Failure (CHF) Mother Family Medical History: Cancer, Coronary Artery Disease (CAD) Additional Family Medical History / Comment(s): CABG. Brother(s) Additional Family Medical History / Comment(s): 2 brothers and 1 sister CABG. General Exam Limitations: no limitations General appearance: alert, in no apparent distress Head exam: Present: atraumatic, normocephalic Eye exam: Present: normal appearance, PERRL ENT exam: Present: normal exam Neck exam: Present: normal inspection. Absent: tenderness, meningismus Respiratory exam: Present: normal lung sounds bilaterally. Absent: respiratory distress, wheezes Cardiovascular Exam: Present: regular rate, normal rhythm GI/Abdominal exam: Present: soft. Absent: distended, tenderness, guarding, rebound Extremities exam: Present: normal inspection Neurological exam: Present: alert, oriented X3, CN II-XII intact. Absent: motor sensory deficit Psychiatric exam: Present: normal affect, normal mood Skin exam: Present: warm, dry, intact Course Vital Signs 07/17/24 07:45 Temperature 102.6 F H Pulse Rate 102 H Respiratory 18 Rate Blood Pressure 107/74 O2 Sat by Pulse 95 Oximetry Medical Decision Making - Medical Decision Making Was pt. sent in by a medical professional or institution (, PA, [facility], urgent care, hospital, or group home...) When possible be specific @ -No Did you speak to anyone other than the patient for history (EMS, parent, family, police, friend...)? What history was obtained from this source @ -No Did you review nursing and triage notes (agree or disagree)? Why? @ -I reviewed and agree with nursing and triage notes Were old charts reviewed (outside hosp., previous admission, EMS record, old EKG, old radiological studies, urgent care reports/EKG's, group home records)? Report findings @ -No old charts were reviewed Differential Weakness: Hypoglycemia, shock, sepsis, hyponatremia, anemia, infection, [place], ETOH, adverse medicine reaction, overdose, stroke, this is not meant to be an all-inclusive list. EKG interpreted by me (3pts min.). @Sinus tachycardia rate of 100, MT interval 164, QRS duration 94, QTc [address] segment elevation. X-rays interpreted by me (1pt min.). @ -[Chest x-ray negative for consolidated pneumonia, no pneumothorax CT interpreted by me (1pt min.). @ -CT brain negative for intracranial hemorrhage or mass effect, no acute findings U/S interpreted by me (1pt. min.). @ -[None done What testing was considered but not performed or refused? (CT, X-rays, U/S, labs)? Why? @ -None What meds were considered but not given or refused? Why? @ -None Did you discuss the management of the patient with other professionals (professionals i.e. MATHIEU Sin, [facility], lab, RT, psych nurse, social sciences instructor, clinical law professor, teacher, fire control officer, case aide)? Give summary @ -EMH Was smoking cessation discussed for >3mins.? @ -No Was critical care preformed (if so, how long)? @ -No Were there social determinants of health that impacted care today? How? (Homelessness, low income, unemployed, alcoholism, drug addiction, transportation, low edu. Level, literacy, decrease access to med. care, fci, rehab)? @ -No Was there de-escalation of care discussed even if they declined (Discuss DNR or withdrawal of care, Hospice)? DNR status @ -No What co-morbidities impacted this encounter? (DM, HTN, Smoking, COPD, CAD, Cancer, CVA, ARF, Chemo, Hep., AIDS, mental health diagnosis, sleep apnea, morbid obesity)? @ -[Coronary artery disease Was patient admitted / discharged? Hospital course, mention meds given and route, prescriptions, significant lab abnormalities, going to OR and other pertinent info. @ -68-year-old male presenting with fever, suprapubic pain and dysuria as well as urinary frequency. Patient had episode of confusion yesterday therefore head CT was ordered which was negative for acute findings. Patient has a leukocytosis at 17 he has a fever of 103. He has urinary symptoms and urinalysis is positive. Urine culture and blood cultures are pending. Given the high fever, leukocytosis and systemic symptoms he will be admitted for IV antibiotics and IV fluid. Undiagnosed new problem with uncertain prognosis? @ -No Drug Therapy requiring intensive monitoring for toxicity (Heparin, Nitro, Insulin, Cardizem)? @ -No Were any procedures done? @ -No Diagnosis/symptom? @ -UTI, sepsis Acute, or Chronic, or Acute on Chronic? @ -Acute Uncomplicated (without systemic symptoms) or Complicated (systemic symptoms)? @ -[Complicated Side effects of treatment? @ -No Exacerbation, Progression, or Severe Exacerbation? @ -No Poses a threat to life or bodily function? How? (Chest pain, [place], [place], pneumonia, PE, COPD, DKA, ARF, appy, cholecystitis, CVA, Diverticulitis, Homicidal, Suicidal, threat to staff... and all critical care pts) @Yes, sepsis - Lab Data Result diagrams: 07/17/24 08:04 07/17/24 08:04 Lab Results 07/17/24 07/17/24 07/17/24 Range/Units 08:01 08:04 08:04 WBC 16.8 H (3.8-10.6) k/uL RBC 3.39 L (4.30-5.90) m/uL Hgb 11.4 L (13.0-17.5) gm/dL Hct 33.7 L (39.0-53.0) % MCV 99.4 (80.0-100.0) fL MCH 33.8 (25.0-35.0) pg MCHC 34.0 (31.0-37.0) g/dL RDW 13.3 (11.5-15.5) % Plt Count 155 (150-450) k/uL MPV 7.4 Neutrophils % 91 % Lymphocytes % 2 % Monocytes % 5 % Eosinophils % 1 % Basophils % 0 % Neutrophils # 15.3 H (1.3-7.7) k/uL Lymphocytes # 0.4 L (1.0-4.8) k/uL Monocytes # 0.8 (0-1.0) k/uL Eosinophils # 0.1 (0-0.7) k/uL Basophils # 0.0 (0-0.2) k/uL Sodium 128 L (137-145) mmol/L Potassium 4.2 (3.5-5.1) mmol/L Chloride 95 L (98-107) mmol/L Carbon Dioxide 24 (22-30) mmol/L Anion Gap 9 mmol/L BUN 16 (9-20) mg/dL Creatinine 0.97 (0.66-1.25) mg/dL Est GFR (CKD-EPI)AfAm >90 (>60 ml/min/1.73 sqM) Est GFR (CKD-EPI)NonAf 81 (>60 ml/min/1.73 sqM) Glucose 124 H (74-99) mg/dL Plasma Lactic Acid Thom (0.7-2.0) mmol/L Calcium 8.6 (8.4-10.2) mg/dL Total Bilirubin 1.2 (0.2-1.3) mg/dL AST 56 (17-59) U/L ALT 26 (4-49) U/L Alkaline Phosphatase 103 (38-126) U/L Total Protein 6.4 (6.3-8.2) g/dL Albumin 3.8 (3.5-5.0) g/dL Urine Color Urine Appearance (Clear) Urine pH (5.0-8.0) Ur Specific [place] (1.001-1.035) Urine Protein (Negative) Urine Glucose (UA) (Negative) Urine Ketones (Negative) Urine Blood (Negative) Urine Nitrite (Negative) Urine Bilirubin (Negative) Urine Urobilinogen (<2.0) mg/dL Ur Leukocyte Esterase (Negative) Urine RBC (0-5) /hpf Urine WBC (0-5) /hpf Urine WBC Clumps (None) /hpf Urine Bacteria (None) /hpf Hyaline Casts (0-2) /lpf Urine Mucus (None) /hpf Influenza Type A (PCR) Not Detected (Not Detectd) Influenza Type B (PCR) Not Detected (Not Detectd) RSV (PCR) Not Detected (Not Detectd) SARS-CoV-2 (PCR) Not Detected (Not Detectd) 07/17/24 07/17/24 Range/Units 08:04 08:39 WBC (3.8-10.6) k/uL RBC (4.30-5.90) m/uL Hgb (13.0-17.5) gm/dL Hct (39.0-53.0) % MCV (80.0-100.0) fL MCH (25.0-35.0) pg MCHC (31.0-37.0) g/dL RDW (11.5-15.5) % Plt Count (150-450) k/uL MPV Neutrophils % % Lymphocytes % % Monocytes % % Eosinophils % % Basophils % % Neutrophils # (1.3-7.7) k/uL Lymphocytes # (1.0-4.8) k/uL Monocytes # (0-1.0) k/uL Eosinophils # (0-0.7) k/uL Basophils # (0-0.2) k/uL Sodium (137-145) mmol/L Potassium (3.5-5.1) mmol/L Chloride (98-107) mmol/L Carbon Dioxide (22-30) mmol/L Anion Gap mmol/L BUN (9-20) mg/dL Creatinine (0.66-1.25) mg/dL Est GFR (CKD-EPI)AfAm (>60 ml/min/1.73 sqM) Est GFR (CKD-EPI)NonAf (>60 ml/min/1.73 sqM) Glucose (74-99) mg/dL Plasma Lactic Acid Thom 1.4 (0.7-2.0) mmol/L Calcium (8.4-10.2) mg/dL Total Bilirubin (0.2-1.3) mg/dL AST (17-59) U/L ALT (4-49) U/L Alkaline Phosphatase (38-126) U/L Total Protein (6.3-8.2) g/dL Albumin (3.5-5.0) g/dL Urine Color Yellow Urine Appearance Cloudy (Clear) Urine pH 6.0 (5.0-8.0) Ur Specific [place] 1.017 (1.001-1.035) Urine Protein 2+ H (Negative) Urine Glucose (UA) Negative (Negative) Urine Ketones Negative (Negative) Urine Blood Moderate H (Negative) Urine Nitrite Negative (Negative) Urine Bilirubin Negative (Negative) Urine Urobilinogen 3.0 (<2.0) mg/dL Ur Leukocyte Esterase Large H (Negative) Urine RBC 53 H (0-5) /hpf Urine WBC >182 H (0-5) /hpf Urine WBC Clumps Occasional H (None) /hpf Urine Bacteria Many H (None) /hpf Hyaline Casts 4 H (0-2) /lpf Urine Mucus Rare H (None) /hpf Influenza Type A (PCR) (Not Detectd) Influenza Type B (PCR) (Not Detectd) RSV (PCR) (Not Detectd) SARS-CoV-2 (PCR) (Not Detectd) Disposition Clinical Impression: UTI (urinary tract infection), Sepsis Disposition: ADMITTED IP TO THIS [facility] Condition: Stable Is patient prescribed a controlled substance at d/c from ED?: No Referrals: Gold [place] MD [Primary Care Provider] - 1-2 days Time of Disposition: 09:25
[2024-07-17] MEDS: ACETAMINOPHEN TAB 500 MG TAB PO STA (08:26)
[2024-07-17] MEDS: SODIUM CHLORIDE 0.9% 1,000 ML IV STA (08:28)
[2024-07-17 08:29] LABS: Basophils % (A) 0 %; Eosinophils # (A) 0.1 k/uL (0-0.7); Eosinophils % (A) 1 %; HCT 33.7 % (39.0-53.0); HGB 11.4 gm/dL (13.0-17.5); Lymphocytes # (A) 0.4 k/uL (1.0-4.8); Lymphocytes % (A) 2 %; MCH 33.8 pg (25.0-35.0); MCV 99.4 fL (80.0-100.0); Mean Platelet Volume 7.4; Monocytes # (A) 0.8 k/uL (0-1.0); Monocytes % (A) 5 %; Neutrophils # (A) 15.3 k/uL (1.3-7.7); Neutrophils % (A) 91 %; Platelet Count 155 k/uL (150-450); RBC 3.39 m/uL (4.30-5.90); RDW 13.3 % (11.5-15.5); WBC 16.8 k/uL (3.8-10.6)
--- NOTE | 2024-07-17 08:38 | CT ---
EXAMINATION TYPE: CT brain wo con DATE OF EXAM: 07/17/2024 HISTORY: fall with LOC. Weakness. CT DLP: 1141.4 mGycm. Automated Exposure Control for Dose Reduction was Utilized. TECHNIQUE: CT scan of the head is performed without contrast. COMPARISON: None. FINDINGS: There is no acute intracranial hemorrhage or midline shift identified. There is mild diff use ventricular and sulcal prominence consistent with diffuse age-related cerebral atrophy. There is mild low-attenuation in the periventricular white matter consistent with chronic small vessel ischem ic change. The globes are intact and the visualized sinuses are clear. The calvarium is intact. IMPRESSION: No acute intracranial hemorrhage or midline shift. There is mild diffuse age-related ce rebral atrophy and chronic small vessel ischemic change noted. [facility], , 07/17/2024 8:35 AM
[2024-07-17 08:40] LABS: ALT 26 U/L (4-49); AST 56 U/L (17-59); African American GFR (CKD) >90 (>60 ml/min/1.73 sqM); Albumin 3.8 g/dL (3.5-5.0); Alkaline Phosphatase 103 U/L (38-126); Anion Gap 9 mmol/L; Blood Urea Nitrogen 16 mg/dL (9-20); Calcium 8.6 mg/dL (8.4-10.2); Carbon Dioxide 24 mmol/L (22-30); Chloride 95 mmol/L (98-107); Glucose 124 mg/dL (74-99); Non-African American GFR(CKD) 81 (>60 ml/min/1.73 sqM); Potassium 4.2 mmol/L (3.5-5.1); Sodium 128 mmol/L (137-145); Total Bilirubin 1.2 mg/dL (0.2-1.3); Total Protein 6.4 g/dL (6.3-8.2)
[2024-07-17 09:05] LABS: Influenza A Not Detected (Not Detectd); Influenza B Not Detected (Not Detectd); RSV Not Detected (Not Detectd)
[2024-07-17 09:11] LABS: Appearance,Urine Cloudy (Clear); Bacteria,Urine Many /hpf; Bilirubin,Urine Negative (Negative); Blood,Urine Moderate (Negative); Color,Urine Yellow; Glucose,Urine (UA) Negative (Negative); Hyaline Casts,Urine 4 /lpf (0-2); Ketones,Urine Negative (Negative); Leukocyte Esterase,Urine Large (Negative); Mucus,Urine Rare /hpf; Nitrite,Urine Negative (Negative); Protein,Urine 2+ (Negative); RBC,Urine 53 /hpf (0-5); Specific Gravity,Urine 1.017 (1.001-1.035); WBC,Urine >182 /hpf (0-5)
[2024-07-17] MEDS ORDERED: NALOXONE 0.4 MG/ML 1 ML VIAL IV PRN (09:22)
--- NOTE | 2024-07-17 09:39 | XR ---
EXAMINATION TYPE: XR chest 2V DATE OF EXAM: 07/17/2024 9:25 AM COMPARISON: None. CLINICAL INDICATION: Male, 68 years old with history of Weakness/fever, TECHNIQUE: Frontal and lateral views of the chest are obtained. FINDINGS: There is no focal air space opacity, pleural effusion, or pneumothorax seen. The cardiac silhouette size is within normal limits. The osseous structures are intact. IMPRESSION: No acute pulmonary infiltrate. [facility], , 07/17/2024 9:37 AM
[2024-07-17] MEDS: SODIUM CHLORIDE 0.9% 1,000 ML IV SCH (10:13)
--- NOTE | 2024-07-17 13:10 | P.HPIM ---
History of Present Illness Patient is a 68-year-old male came in with fever urinary frequency urgency and dysuria. Patient was also quite weak and was also confused last night. Patient has history of UTIs in the past although denies any urinary retention or BPH. Patient did take a course of oral antibiotics by PCP urine is significantly abnormal with WBC of greater than 192 WBC clumps. Parents patient serum sodium is 128 patient does take Lasix at home I do not have any echocardiogram or BNP available at this time chest x-ray did not show any infiltrate. REVIEW OF SYSTEMS: All other systems are negative except those mentioned in the HPI PHYSICAL EXAMINATION: GENERAL: The patient is alert and oriented x3, not in any acute distress. Well developed, well nourished. HEENT: Pupils are round and equally reacting to light. EOMI. No scleral icterus. No conjunctival pallor. Normocephalic, atraumatic. No pharyngeal erythema. No thyromegaly. CARDIOVASCULAR: S1 and S2 present. No murmurs, rubs, or gallops. PULMONARY: Chest is clear to auscultation, no wheezing or crackles. ABDOMEN: Soft, nontender, nondistended, normoactive bowel sounds. No palpable organomegaly. MUSCULOSKELETAL: No joint swelling or deformity. EXTREMITIES: No cyanosis, clubbing, or pedal edema. NEUROLOGICAL: Gross neurological examination did not reveal any focal deficits. SKIN: No rashes. Assessment and plan -Sepsis secondary to urinary tract infection patient will be started on 3 g of Rocephin, patient will be started on IV fluids -I hyponatremia hypovolemic hyponatremia patient is also on Lasix which will be held -Hypertension patient is hypotensive hold off diuretics and lisinopril that he takes at home, hypotension is probably because of sepsis -Hyperlipidemia -Depression -Gastroesophageal reflux disease DVT prophylaxis: Lovenox Past Medical History Past Medical History: Coronary Artery Disease (CAD), Hyperlipidemia, Hypertension, Osteoarthritis (OA), Sleep Apnea/CPAP/BIPAP Additional Past Medical History / Comment(s): insomnia, lumbar radiculopathy, uses CPAP few times/week, spinal stenosis, missed a step & fell 01/29 landing on Rt. hip, Rt.shoulder,LOC x 30 seconds History of Any Multi-Drug Resistant Organisms: None Reported Past Surgical History: Appendectomy, Heart Catheterization With Stent Additional Past Surgical History / Comment(s): Rt. great toe fusion, partial Rt. hip replacement 01/29, Lt. rotator cuff repair Past Anesthesia/Blood Transfusion Reactions: No Reported Reaction Date of Last Stent Placement:: 03/30/22 Past Psychological History: Anxiety Smoking Status: Former smoker Past Alcohol Use History: Daily Past Drug Use History: None Reported - Past Family History Father Family Medical History: Congestive Heart Failure (CHF) Mother Family Medical History: Cancer, Coronary Artery Disease (CAD) Additional Family Medical History / Comment(s): CABG. Brother(s) Additional Family Medical History / Comment(s): 2 brothers and 1 sister CABG. Medications and Allergies Home Medications Medication Instructions Recorded Confirmed Type Atorvastatin [Lipitor] 40 mg PO HS 10/03/23 07/17/24 History Clopidogrel [Plavix] 75 mg PO DAILY 10/03/23 07/17/24 History Escitalopram [Lexapro] 20 mg PO DAILY 10/03/23 07/17/24 History Ezetimibe [Zetia] 10 mg PO HS 10/03/23 07/17/24 History Pantoprazole [Protonix] 40 mg PO BID 10/03/23 07/17/24 History lisinopriL [Zestril] 5 mg PO DAILY 10/03/23 07/17/24 History Furosemide [Lasix] 20 mg PO DAILY #90 tab 03/29/24 07/17/24 Rx Ibuprofen [Motrin] 800 mg PO TID PRN 07/17/24 07/17/24 History Multivitamins, Thera [Multivitamin 1 tab PO DAILY 07/17/24 07/17/24 History (formulary)] traZODone HCL [Desyrel] 200 mg PO HS 07/17/24 07/17/24 History Allergies Allergy/AdvReac Type Severity Reaction Status Date / Time No Known Allergies Allergy Verified 07/17/24 10:46 Physical Exam Vitals: Vital Signs Temp Pulse Resp BP Pulse Ox 07/17/24 10:43 98.2 F 87 18 104/73 97 07/17/24 09:27 100.5 F H 07/17/24 07:45 102.6 F H 102 H 18 107/74 95 Intake and Output 07/16/24 07/17/24 07/17/24 22:59 06:59 14:59 Other: Weight 90.718 kg Results CBC & Chem 7: 07/17/24 08:04 07/17/24 08:04 Labs: Abnormal Lab Results - Last 24 Hours (Table) 07/17/24 07/17/24 07/17/24 Range/Units 08:04 08:04 08:39 WBC 16.8 H (3.8-10.6) k/uL RBC 3.39 L (4.30-5.90) m/uL Hgb 11.4 L (13.0-17.5) gm/dL Hct 33.7 L (39.0-53.0) % Neutrophils # 15.3 H (1.3-7.7) k/uL Lymphocytes # 0.4 L (1.0-4.8) k/uL Sodium 128 L (137-145) mmol/L Chloride 95 L (98-107) mmol/L Glucose 124 H (74-99) mg/dL Urine Protein 2+ H (Negative) Urine Blood Moderate H (Negative) Ur Leukocyte Esterase Large H (Negative) Urine RBC 53 H (0-5) /hpf Urine WBC >182 H (0-5) /hpf Urine WBC Clumps Occasional H (None) /hpf Urine Bacteria Many H (None) /hpf Hyaline Casts 4 H (0-2) /lpf Urine Mucus Rare H (None) /hpf
[2024-07-17] MEDS: ENOXAPARIN 40 MG/0.4 ML SYRINGE SQ SCH (15:26)
[2024-07-17] MEDS: traZODone HCL 100 MG TAB PO SCH (20:13)
[2024-07-17] MEDS: PANTOPRAZOLE 40 MG TABLET PO SCH (20:14)
[2024-07-17] MEDS: EZETIMIBE 10 MG TAB PO SCH (20:14)
[2024-07-17] MEDS: ATORVASTATIN 40 MG TAB PO SCH (20:14)
[2024-07-18] MEDS: MEROPENEM 500 MG in SODIUM CHLORIDE 0.9% 100 ML IVPB SCH ×2 (04:18→17:54)
[2024-07-18] MEDS: CLOPIDOGREL 75 MG TAB PO SCH (08:34)
[2024-07-18] MEDS: ESCITALOPRAM 20 MG TAB PO SCH (09:01)
[2024-07-18 09:42] LABS: ALT 23 U/L (10-49); AST 48 U/L (14-35); Albumin 3.5 g/dL (3.8-4.9); Albumin/Globulin Ratio 1.46 Ratio (1.60-3.17); Alkaline Phosphatase 86 U/L (41-126); BUN/Creat Ratio 14.71 Ratio (12.00-20.00); Blood Urea Nitrogen 10.3 mg/dL (9.0-27.0); Calcium 8.4 mg/dL (8.7-10.3); Carbon Dioxide 21.7 mmol/L (21.6-31.8); Chloride 101 mmol/L (96-109); Globulin 2.4 g/dL (1.6-3.3); Glucose 117 mg/dL (70-110); Potassium 3.6 mmol/L (3.5-5.5); Sodium 135 mmol/L (135-145); Total Bilirubin 0.3 mg/dL (0.3-1.2); Total Protein 5.9 g/dL (6.2-8.2)
--- NOTE | 2024-07-18 12:29 | P.PN ---
Subjective Progress Note Date: 07/18/24 Principal diagnosis: Hospital course: Patient is a 68-year-old male came in with fever urinary frequency urgency and dysuria. Patient was also quite weak and was also confused last night. Patient has history of UTIs in the past although denies any urinary retention or BPH. Patient did take a course of oral antibiotics by PCP urine is significantly abnormal with WBC of greater than 192 WBC clumps. Parents patient serum sodium is 128 patient does take Lasix at home I do not have any echocardiogram or BNP available at this time chest x-ray did not show any infiltrate. 07/18/24: Patient is seen and examined at bedside. Vital signs are stable, his blood pressure today is 146/80. Labs today show anion gap 9.3, creatinine 0.7, sodium 135. Blood culture shows Class A ESBL E. coli. Urine culture shows gram- negative bacilli. Review of systems: Pertinent positives and negatives as discussed in HPI, a complete review of systems was performed and all other systems are negative. Vitals: Signs Reviewed Physical examination: General: nontoxic, no distress, appears at stated age Derm: warm, dry, intact Head: atraumatic, normocephalic, symmetric Eyes: EOMI, anicteric sclera Mouth: no lip lesion, mucus membranes moist Cardiovascular: S1 S2 reg, no murmur Lungs: CTA bilateral, no rhonchi, no rales, no accessory muscle use Abdominal: soft, non-tender to palpataion Extremities: No cyanosis, clubbing, or pedal edema. Neuro: Alert, Oriented, Gross neurological examination did not reveal any focal deficits. Psych: well appearing, appropriate affect Assessment/Plan: Patient is a 68 year old male with past medical history of CAD, hyperlipidemia, hypertension, OA, JAVIER, UTIs presented to the ED with fever, urinary frequency, urgency and dysuria. He has been diagnosed with sepsis secondary to UTI and is on Rocephin. Active: #. Sepsis secondary to urinary tract infection Blood culture shows Class A ESBL E. coli. Rocephin discontinued Initiate meropenem 500 mg every IVPB 6 hours #. Hypovolemic hyponatremia Hold Lasix 0.9 normal saline at 100 mL/h #. Nausea and vomiting Continue ondansetron 4 mg IVP every 8 hours as needed Chronic: #. Coronary artery disease #. Hypertension #. Hyperlipidemia #. Depression #. Gastroesophageal reflux disease Currently hypotensive, hold off diuretics and lisinopril Continue atorvastatin 40 mg p.o. at bedtime, clopidogrel 75 mg p.o. daily, escitalopram 20 mg p.o. daily, ezetimibe 10 mg p.o. at bedtime, trazodone 100 mg p.o. at bedtime F: 0.9 normal saline at 100 mL/h E: Replete sodium N: Regular diet DVT prophylaxis: Lovenox 40 mg SQ daily GI prophylaxis: Pantoprazole 40 mg p.o. BID Objective - Vital Signs Vital signs: Vital Signs Temp 98.3 F 07/18/24 07:36 Pulse 87 07/18/24 07:36 Resp 16 07/18/24 07:36 BP 146/80 07/18/24 07:36 Pulse Ox 95 07/18/24 07:36 FiO2 Intake & Output 07/17/24 07/18/24 07/18/24 18:59 06:59 18:59 Intake Total 367 240 Output Total 700 Balance -333 240 Weight 90.718 kg Intake: Oral 367 240 Output: Urine 700 - Labs CBC & Chem 7: 07/17/24 08:04 07/18/24 04:09 Labs: Abnormal Lab Results - Last 24 Hours (Table) 07/17/24 Range/Units 08:39 Urine Protein 2+ H (Negative) Urine Blood Moderate H (Negative) Ur Leukocyte Esterase Large H (Negative) Urine RBC 53 H (0-5) /hpf Urine WBC >182 H (0-5) /hpf Urine WBC Clumps Occasional H (None) /hpf Urine Bacteria Many H (None) /hpf Hyaline Casts 4 H (0-2) /lpf Urine Mucus Rare H (None) /hpf Microbiology - Last 24 Hours (Table) 07/17/24 08:07 Blood Culture Gram Stain - Preliminary Blood Blood Culture - Preliminary Molecular ID
[2024-07-18] MEDS: ACETAMINOPHEN TAB 325 MG TAB PO PRN (21:11)
[2024-07-19 08:54] LABS: BUN/Creat Ratio 10.14 Ratio (12.00-20.00); Blood Urea Nitrogen 7.1 mg/dL (9.0-27.0); Calcium 8.5 mg/dL (8.7-10.3); Carbon Dioxide 25.1 mmol/L (21.6-31.8); Chloride 103 mmol/L (96-109); Glucose 104 mg/dL (70-110); Sodium 138 mmol/L (135-145)
[2024-07-19 08:58] LABS: HCT 31.7 % (39.6-50.0); HGB 10.4 g/dL (13.0-17.0); MCH 32.9 pg (27.0-32.0); MCHC 32.8 g/dL (32.0-37.0); MCV 100.3 FL (80.0-97.0); Mean Platelet Volume 9.8 FL (9.5-12.2); NRBC Per 100 WBC 0 X 10*3/uL (0.00-0.01); Platelet Count 166 X 10*3/uL (140-440); RBC 3.16 X 10*6/uL (4.40-5.60); RDW 13.1 % (11.5-14.5); WBC 8.87 X 10*3/uL (4.50-10.00)
[2024-07-19] MEDS: ONDANSETRON 4 MG/2 ML VIAL IVP PRN (09:20)
--- NOTE | 2024-07-19 12:44 | P.PN ---
Subjective Progress Note Date: 07/19/24 Principal diagnosis: Hospital course: Patient is a 68-year-old male came in with fever urinary frequency urgency and dysuria. Patient was also quite weak and was also confused last night. Patient has history of UTIs in the past although denies any urinary retention or BPH. Patient did take a course of oral antibiotics by PCP urine is significantly abnormal with WBC of greater than 192 WBC clumps. Parents patient serum sodium is 128 patient does take Lasix at home I do not have any echocardiogram or BNP available at this time chest x-ray did not show any infiltrate. 07/18/24: Patient is seen and examined at bedside. Vital signs are stable, his blood pressure today is 146/80. Labs today show anion gap 9.3, creatinine 0.7, sodium 135. Blood culture shows Class A ESBL E. coli. Urine culture shows gram- negative bacilli. 07/19/24: Patient evaluated today. His temperature is 100.2 F, oxygen saturation 91% on room air. Labs today show hemoglobin 10.4, BUN 7.1, anion gap 9.9. Review of systems: Pertinent positives and negatives as discussed in HPI, a complete review of systems was performed and all other systems are negative. Vitals: Signs Reviewed Physical examination: General: nontoxic, no distress, appears at stated age Derm: warm, dry, intact Head: atraumatic, normocephalic, symmetric Eyes: EOMI, anicteric sclera Mouth: no lip lesion, mucus membranes moist Cardiovascular: S1 S2 reg, no murmur Lungs: CTA bilateral, no rhonchi, no rales, no accessory muscle use Abdominal: soft, non-tender to palpataion Extremities: No cyanosis, clubbing, or pedal edema. Neuro: Alert, Oriented, Gross neurological examination did not reveal any focal deficits. Psych: well appearing, appropriate affect Assessment/Plan: Patient is a 68 year old male with past medical history of CAD, hyperlipidemia, hypertension, OA, JAVIER, UTIs presented to the ED with fever, urinary frequency, urgency and dysuria. He has been diagnosed with sepsis secondary to UTI and is on Rocephin. Active: #. Sepsis secondary to urinary tract infection Blood culture shows Class A ESBL E. coli. Rocephin discontinued Continue meropenem 500 mg every IVPB 6 hours Blood culture ordered ID consulted #. Hypovolemic hyponatremia Hold Lasix and lisinopril 0.9 normal saline at 100 mL/h #. Nausea and vomiting Continue ondansetron 4 mg IVP every 8 hours as needed Chronic: #. Coronary artery disease #. Hypertension #. Hyperlipidemia #. Depression #. Gastroesophageal reflux disease Currently hypotensive, hold off diuretics and lisinopril Continue atorvastatin 40 mg p.o. at bedtime, clopidogrel 75 mg p.o. daily, escitalopram 20 mg p.o. daily, ezetimibe 10 mg p.o. at bedtime, trazodone 200 mg p.o. at bedtime F: 0.9 normal saline at 100 mL/h E: Replete sodium N: Regular diet DVT prophylaxis: Lovenox 40 mg SQ daily GI prophylaxis: Pantoprazole 40 mg p.o. BID Objective - Vital Signs Vital signs: Vital Signs Temp 100.2 F H 07/19/24 07:16 Pulse 83 07/19/24 07:16 Resp 16 07/19/24 07:16 BP 169/90 07/19/24 07:16 Pulse Ox 91 L 07/19/24 08:50 FiO2 Intake & Output 07/18/24 07/19/24 07/19/24 18:59 06:59 18:59 Intake Total 1560 740 236 Balance 1560 740 236 Weight 90.718 kg Intake: Intake, IV Titration 200 Amount Meropenem 500 mg In 200 Sodium Chloride 0.9% 100 ml @ 33.333 mls/hr IVPB Q6H [facility] Rx#:[id number] Oral 1560 540 236 Other: Voiding Method Toilet Toilet Urinal Urinal # Voids 5 3 - Labs CBC & Chem 7: 07/19/24 04:41 07/19/24 04:41 Labs: Abnormal Lab Results - Last 24 Hours (Table) 07/18/24 07/19/24 07/19/24 Range/Units 04:09 04:41 04:41 RBC 3.16 L (4.40-5.60) X 10*6/uL Hgb 10.4 L (13.0-17.0) g/dL Hct 31.7 L (39.6-50.0) % MCV 100.3 H (80.0-97.0) FL MCH 32.9 H (27.0-32.0) pg Anion Gap 12.30 H (4.00-12.00) mmol/L BUN 7.1 L (9.0-27.0) mg/dL BUN/Creatinine Ratio 10.14 L (12.00-20.00) Ratio Glucose 117 H (70-110) mg/dL Calcium 8.4 L 8.5 L (8.7-10.3) mg/dL AST 48 H (14-35) U/L Total Protein 5.9 L (6.2-8.2) g/dL Albumin 3.5 L (3.8-4.9) g/dL Albumin/Globulin Ratio 1.46 L (1.60-3.17) Ratio Microbiology - Last 24 Hours (Table) 07/17/24 07:53 Blood Culture - Preliminary Blood 07/17/24 08:07 Blood Culture Gram Stain - Preliminary Blood Blood Culture - Preliminary Escherichia coli Molecular ID 07/17/24 08:39 Urine Culture - Preliminary Urine,Voided Gram Neg Bacilli
--- NOTE | 2024-07-19 13:53 | US ---
EXAMINATION TYPE: US kidneys/renal and bladder DATE OF EXAM: 07/19/2024 Exam done portable COMPARISON: US 2021 CLINICAL INDICATION: Male, 68 years old with history of uti and bacteremia; TECHNIQUE: Grayscale imaging of the bilateral kidneys and urinary bladder: FINDINGS: EXAM MEASUREMENTS: Right Kidney: 10.8 x 6.6 x 5.5 cm Left Kidney: 10.9 x 5.9 x 5.3 cm Right Kidney: 1.4cm exophytic hypoechoic area lateral mid pole Left Kidney: wnl Bladder: wnl Bilateral Jets seen: no There is no evidence for hydronephrosis at this point in time. Corticomedullary differentiation is ma intained bilaterally. No nephrolithiasis is seen. Stable exophytic lateral right mid pole hypoechoic 1.4 cm lesion. No left renal masses are identified. No organized perinephric fluid collections identi fied. The urinary bladder is anechoic. IMPRESSION: 1. No hydronephrosis or nephrolithiasis. 2. Stable right renal cyst. [facility], , 07/19/2024 1:50 PM
--- NOTE | 2024-07-19 22:29 | P.CONS ---
History of Present Illness - Reason for Consult Consult date: 07/19/24 ESBL E. coli bacteremia Requesting physician: Alyse Raman - Chief Complaint Fever urinary burning frequency x days - History of Present Illness Patient is a 68-year-old male with a past medical history significant for hypertension hyperlipidemia osteoarthritis sleep apnea coronary disease, presenting to the hospital 2 days ago for evaluation of fever urinary urgency and frequency in this patient symptom has been going on for few days before presenting to the hospital is complaining of significant burning and frequency denies significant difficulty of urinating suprapubic pain but no flank pain did have some nausea but no vomiting patient denies having any headache or URI symptoms no chest pain shortness of breath or cough no abdominal pain no diarrhea on presentation to the hospital he did have fever of 102.6 F patient was not tachycardic hypotensive or hypoxic he did have a white count of 16.8 with a left shift creatinine has been normal liver isms are normal urine was positive influenza RSV COVID testing was negative patient blood cultures came positive yesterday with ESBL E. coli patient was started on meropenem infectious disease was consulted today for further management of antibiotic therapy Review of Systems Positive point and negatives has been mentioned in the HPI, complete review of systems was performed and all other systems are negative Past Medical History Past Medical History: Coronary Artery Disease (CAD), Hyperlipidemia, Hypertension, Osteoarthritis (OA), Sleep Apnea/CPAP/BIPAP Additional Past Medical History / Comment(s): insomnia, lumbar radiculopathy, uses CPAP few times/week, spinal stenosis, missed a step & fell 01/2023 landing on Rt. hip and fracturing it History of Any Multi-Drug Resistant Organisms: None Reported Past Surgical History: Appendectomy, Heart Catheterization With Stent Additional Past Surgical History / Comment(s): Rt. great toe fusion, partial Rt. hip replacement 01/2023, Bilateral rotator cuff repair Past Anesthesia/Blood Transfusion Reactions: No Reported Reaction Date of Last Stent Placement:: 03/30/22 Past Psychological History: Anxiety Additional Psychological History / Comment(s): takes Lexapro -states " I worry too much and that's why I take it" Smoking Status: Former smoker Past Alcohol Use History: Daily Additional Past Alcohol Use History / Comment(s): smoked 1 ppd intermittently. 6-8 beers/day Past Drug Use History: None Reported - Past Family History Father Family Medical History: Congestive Heart Failure (CHF) Mother Family Medical History: Cancer, Coronary Artery Disease (CAD) Additional Family Medical History / Comment(s): CABG. Brother(s) Additional Family Medical History / Comment(s): 2 brothers and 1 sister CABG. Medications and Allergies Home Medications Medication Instructions Recorded Confirmed Type Atorvastatin [Lipitor] 40 mg PO HS 10/03/23 07/17/24 History Clopidogrel [Plavix] 75 mg PO DAILY 10/03/23 07/17/24 History Escitalopram [Lexapro] 20 mg PO DAILY 10/03/23 07/17/24 History Ezetimibe [Zetia] 10 mg PO HS 10/03/23 07/17/24 History Pantoprazole [Protonix] 40 mg PO BID 10/03/23 07/17/24 History lisinopriL [Zestril] 5 mg PO DAILY 10/03/23 07/17/24 History Furosemide [Lasix] 20 mg PO DAILY #90 tab 03/29/24 07/17/24 Rx Ibuprofen [Motrin] 800 mg PO TID PRN 07/17/24 07/17/24 History Multivitamins, Thera [Multivitamin 1 tab PO DAILY 07/17/24 07/17/24 History (formulary)] traZODone HCL [Desyrel] 200 mg PO HS 07/17/24 07/17/24 History Allergies Allergy/AdvReac Type Severity Reaction Status Date / Time No Known Allergies Allergy Verified 07/17/24 10:46 Physical Exam Vitals: Vital Signs Temp Pulse Resp BP Pulse Ox 07/19/24 11:53 98.5 F 72 16 148/90 93 L 07/19/24 08:50 91 L 07/19/24 08:00 16 07/19/24 07:16 100.2 F H 83 16 169/90 96 07/19/24 02:00 98.7 F 76 16 132/71 96 07/18/24 19:26 99.5 F 83 16 141/90 97 Intake and Output 07/18/24 07/19/24 07/19/24 22:59 06:59 14:59 Intake Total 1080 740 236 Balance 1080 740 236 Intake: Intake, IV Titration 200 Amount Meropenem 500 mg In 200 Sodium Chloride 0.9% 100 ml @ 33.333 mls/hr IVPB Q6H [facility] Rx#:[id number] Oral 1080 540 236 Other: Voiding Method Toilet Toilet Urinal Urinal # Voids 5 3 GENERAL DESCRIPTION: Elderly male lying in bed, no distress. No tachypnea or accessory muscle of respiration use. HEENT: Shows Pallor , no scleral icterus. Oral mucous membrane is dry. NECK: Trachea central, no thyromegaly. LUNGS: Unlabored breathing. Clear to auscultation anteriorly. No wheeze or crackle. HEART: S1, S2, regular rate and rhythm. No loud murmur ABDOMEN: Soft, no tenderness , guarding or rigidity, no organomegaly EXTREMITIES: No edema of feet. SKIN: No rash, no masses palpable. NEUROLOGICAL: The patient is awake, alert, oriented x3, mood and affect normal. Results CBC & Chem 7: 07/19/24 04:41 07/19/24 04:41 Labs: Abnormal Lab Results - Last 24 Hours (Table) 07/19/24 07/19/24 Range/Units 04:41 04:41 RBC 3.16 L (4.40-5.60) X 10*6/uL Hgb 10.4 L (13.0-17.0) g/dL Hct 31.7 L (39.6-50.0) % MCV 100.3 H (80.0-97.0) FL MCH 32.9 H (27.0-32.0) pg BUN 7.1 L (9.0-27.0) mg/dL BUN/Creatinine Ratio 10.14 L (12.00-20.00) Ratio Calcium 8.5 L (8.7-10.3) mg/dL Microbiology - Last 24 Hours (Table) 07/17/24 08:39 Urine Culture - Final Urine,Voided Escherichia coli ESBL 07/17/24 08:07 Blood Culture Gram Stain - Final Blood Blood Culture - Final Escherichia coli ESBL Molecular ID 07/17/24 07:53 Blood Culture - Preliminary Blood Assessment and Plan (1) E coli bacteremia Current Visit: Yes Status: Acute Code(s): R78.81 - BACTEREMIA; B96.20 - UNSP ESCHERICHIA COLI THE CAUSE OF DISEASES [facility] SNOMED Code(s): 851096378289 (2) ESBL (extended spectrum beta-lactamase) producing bacteria infection Current Visit: Yes Status: Acute Code(s): A49.9 - BACTERIAL INFECTION, UNSPECIFIED; Z16.12 - EXTENDED SPECTRUM BETA LACTAMASE (ESBL) RESISTANCE SNOMED Code(s): 890132091 (3) Sepsis Current Visit: Yes Status: Acute Code(s): A41.9 - SEPSIS, UNSPECIFIED ORGANISM SNOMED Code(s): 27600830 (4) UTI (urinary tract infection) Current Visit: Yes Status: Acute Code(s): N39.0 - URINARY TRACT INFECTION, SITE NOT SPECIFIED SNOMED Code(s): 60029997 Plan: 1patient presented to hospital with sepsis in this patient who did have fever elevated white count meeting criteria for SIRS source is ESBL E. coli UTI. 2patient with ESBL E. coli bacteremia source is UTI. 3blood culture repeat document clearance. 4check ultrasound the kidney bladder area to make an evidence of any hydronephrosis stone or abscess. 5patient is on meropenem 500 Q6 to continue while inpatient he will need midline and IV antibiotic arrangement on discharge. Question concern answered. We will follow on clinical condition and cultures to further adjust medication if needed Thank you for this consultation we will follow the patient along with you Dictation was produced using [employer] dictation software. please excuse any grammatical, word or spelling errors. Time with Patient: Greater than 30
[2024-07-20 09:27] LABS: HCT 31.3 % (39.6-50.0); HGB 10.1 g/dL (13.0-17.0); MCHC 32.3 g/dL (32.0-37.0); MCV 99.1 FL (80.0-97.0); Mean Platelet Volume 9.8 FL (9.5-12.2); NRBC Per 100 WBC 0 X 10*3/uL (0.00-0.01); Platelet Count 191 X 10*3/uL (140-440); RBC 3.16 X 10*6/uL (4.40-5.60); RDW 12.9 % (11.5-14.5); WBC 10.67 X 10*3/uL (4.50-10.00)
[2024-07-20 10:19] LABS: BUN/Creat Ratio 7.86 Ratio (12.00-20.00); Blood Urea Nitrogen 5.5 mg/dL (9.0-27.0); Calcium 8.4 mg/dL (8.7-10.3); Carbon Dioxide 23.5 mmol/L (21.6-31.8); Chloride 106 mmol/L (96-109); Glucose 102 mg/dL (70-110); Potassium 3.6 mmol/L (3.5-5.5); Sodium 141 mmol/L (135-145)
[2024-07-20] MEDS: lisinopriL 5 MG TAB PO SCH (11:33)
--- NOTE | 2024-07-20 13:01 | P.PN ---
Subjective Progress Note Date: 07/20/24 Principal diagnosis: Hospital course: Patient is a 68-year-old male came in with fever urinary frequency urgency and dysuria. Patient was also quite weak and was also confused last night. Patient has history of UTIs in the past although denies any urinary retention or BPH. Patient did take a course of oral antibiotics by PCP urine is significantly abnormal with WBC of greater than 192 WBC clumps. Parents patient serum sodium is 128 patient does take Lasix at home I do not have any echocardiogram or BNP available at this time chest x-ray did not show any infiltrate. 07/18/24: Patient is seen and examined at bedside. Vital signs are stable, his blood pressure today is 146/80. Labs today show anion gap 9.3, creatinine 0.7, sodium 135. Blood culture shows Class A ESBL E. coli. Urine culture shows gram- negative bacilli. 07/19/24: Patient evaluated today. His temperature is 100.2 F, oxygen saturation 91% on room air. Labs today show hemoglobin 10.4, BUN 7.1, anion gap 9.9. 07/20/24: Patient examined at bedside. His blood pressure is 161/82 and is saturating at 93% on room air. Labs today show WBC 10.67, hemoglobin 10.1, BUN 5.9, sodium 141. urine culture shows ESBL E. coli. Abdomen ultrasound showed no hydronephrosis or nephrolithiasis, stable right renal cyst. Review of systems: Pertinent positives and negatives as discussed in HPI, a complete review of systems was performed and all other systems are negative. Vitals: Signs Reviewed Physical examination: General: nontoxic, no distress, appears at stated age Derm: warm, dry, intact Head: atraumatic, normocephalic, symmetric Eyes: EOMI, anicteric sclera Mouth: no lip lesion, mucus membranes moist Cardiovascular: S1 S2 reg, no murmur Lungs: CTA bilateral, no rhonchi, no rales, no accessory muscle use Abdominal: soft, non-tender to palpataion Extremities: No cyanosis, clubbing, or pedal edema. Neuro: Alert, Oriented, Gross neurological examination did not reveal any focal deficits. Psych: well appearing, appropriate affect Assessment/Plan: Patient is a 68 year old male with past medical history of CAD, hyperlipidemia, hypertension, OA, JAVIER, UTIs presented to the ED with fever, urinary frequency, urgency and dysuria. He has been diagnosed with sepsis secondary to UTI. Blood and urine cultures positive for ESBL E. coli and he continues to be on Meropenem. ID recommend midline and IV antibiotics on discharge. Active: #. Sepsis secondary to urinary tract infection Blood culture shows Class A ESBL E. coli Urine culture shows ESBL E. coli Abdomen ultrasound showed no hydronephrosis or nephrolithiasis, stable right renal cyst Rocephin discontinued Continue meropenem 500 mg every IVPB 6 hours Repeat Blood culture ordered ID is following, recommend midline and IV antibiotics on discharge Schedule Midline IV insertion #. Hypovolemic hyponatremia, resolved #. Nausea and vomiting Continue ondansetron 4 mg IVP every 8 hours as needed Chronic: #. Coronary artery disease #. Hypertension #. Hyperlipidemia #. Depression #. Gastroesophageal reflux disease Continue atorvastatin 40 mg p.o. at bedtime, clopidogrel 75 mg p.o. daily, escitalopram 20 mg p.o. daily, ezetimibe 10 mg p.o. at bedtime, trazodone 200 mg p.o. at bedtime, lisinopril 5 mg PO daily F: 0.9 normal saline at 100 mL/h E: Replete as required N: Regular diet DVT prophylaxis: Lovenox 40 mg SQ daily GI prophylaxis: Pantoprazole 40 mg p.o. BID Objective - Vital Signs Vital signs: Vital Signs Temp 98.6 F 07/20/24 07:43 Pulse 76 07/20/24 07:43 Resp 16 07/20/24 07:43 BP 161/82 07/20/24 07:43 Pulse Ox 93 L 07/20/24 07:43 FiO2 Intake & Output 07/19/24 07/20/24 07/20/24 18:59 06:59 18:59 Intake Total 2035 1940 240 Output Total 1100 Balance 2035 840 240 Intake: Intake, IV Titration 1400 Amount Meropenem 500 mg In 200 Sodium Chloride 0.9% 100 ml @ 33.333 mls/hr IVPB Q6H [facility] Rx#:[id number] Sodium Chloride 0.9% 1, 1200 000 ml @ 100 mls/hr IV . Q10H [facility] Rx#:[id number] Oral 2035 540 240 Output: Urine 1100 Other: Voiding Method Toilet Toilet Urinal Urinal # Voids 5 # Bowel Movements 1 - Labs CBC & Chem 7: 07/20/24 06:07 07/20/24 06:07 Labs: Abnormal Lab Results - Last 24 Hours (Table) 07/19/24 Range/Units 04:41 RBC 3.16 L (4.40-5.60) X 10*6/uL Hgb 10.4 L (13.0-17.0) g/dL Hct 31.7 L (39.6-50.0) % MCV 100.3 H (80.0-97.0) FL MCH 32.9 H (27.0-32.0) pg Microbiology - Last 24 Hours (Table) 07/17/24 07:53 Blood Culture - Preliminary Blood 07/17/24 08:39 Urine Culture - Final Urine,Voided Escherichia coli ESBL 07/17/24 08:07 Blood Culture Gram Stain - Final Blood Blood Culture - Final Escherichia coli ESBL Molecular ID
--- NOTE | 2024-07-20 16:08 | P.PN ---
Subjective Progress Note Date: 07/20/24 Principal diagnosis: Reason for follow-up is ESBL E. coli UTI and bacteremia Patient is a 68-year-old male with a past medical history significant for hypertension hyperlipidemia osteoarthritis sleep apnea coronary disease, presenting to the hospital for evaluation of fever urinary urgency and frequency, patient did have positive blood culture with ESBL E. coli prompting this consultation. On today's evaluation that is 07/20/2024, patient did not have any fever and denies any chills, patient is breathing comfortably on room air, patient with no chest pain or cough patient did not have any abdominal pain nausea vomiting or any loose stools, mention improving his urinary symptoms. Patient white count is 10.67, creatinine 0.7 ultrasound was negative for any str uctural abnormality Objective - Vital Signs Vital signs: Vital Signs Temp 98.4 F 07/20/24 12:15 Pulse 74 07/20/24 12:15 Resp 16 07/20/24 12:15 BP 131/65 07/20/24 12:15 Pulse Ox 93 L 07/20/24 12:15 FiO2 Intake & Output 07/19/24 07/20/24 07/20/24 18:59 06:59 18:59 Intake Total 2035 1940 240 Output Total 1100 Balance 2035 840 240 Intake: Intake, IV Titration 1400 Amount Meropenem 500 mg In 200 Sodium Chloride 0.9% 100 ml @ 33.333 mls/hr IVPB Q6H [facility] Rx#:[id number] Sodium Chloride 0.9% 1, 1200 000 ml @ 100 mls/hr IV . Q10H [facility] Rx#:[id number] Oral 6 540 240 Output: Urine 1100 Other: Voiding Method Toilet Toilet Toilet Urinal Urinal Urinal # Voids 5 # Bowel Movements 1 - Exam GENERAL DESCRIPTION: An elderly male lying in bed in no distress RESPIRATORY SYSTEM: Unlabored breathing , decreased breath sounds at bases HEART: S1 S2 regular rate and rhythm , ABDOMEN: Soft , no tenderness EXTREMITIES: No edema feet - Labs CBC & Chem 7: 07/20/24 06:07 07/20/24 06:07 Labs: Abnormal Lab Results - Last 24 Hours (Table) 07/20/24 07/20/24 Range/Units 06:07 06:07 WBC 10.67 H (4.50-10.00) X 10*3/uL RBC 3.16 L (4.40-5.60) X 10*6/uL Hgb 10.1 L (13.0-17.0) g/dL Hct 31.3 L (39.6-50.0) % MCV 99.1 H (80.0-97.0) FL BUN 5.5 L (9.0-27.0) mg/dL BUN/Creatinine Ratio 7.86 L (12.00-20.00) Ratio Calcium 8.4 L (8.7-10.3) mg/dL Microbiology - Last 24 Hours (Table) 07/17/24 07:53 Blood Culture - Preliminary Blood 07/17/24 08:39 Urine Culture - Final Urine,Voided Escherichia coli ESBL 07/17/24 08:07 Blood Culture Gram Stain - Final Blood Blood Culture - Final Escherichia coli ESBL Molecular ID Assessment and Plan (1) E coli bacteremia Current Visit: Yes Status: Acute Code(s): R78.81 - BACTEREMIA; B96.20 - UNSP ESCHERICHIA COLI THE CAUSE OF DISEASES [facility] SNOMED Code(s): 575217264732 (2) ESBL (extended spectrum beta-lactamase) producing bacteria infection Current Visit: Yes Status: Acute Code(s): A49.9 - BACTERIAL INFECTION, UNSPECIFIED; Z16.12 - EXTENDED SPECTRUM BETA LACTAMASE (ESBL) RESISTANCE SNOMED Code(s): 817159479 (3) Sepsis Current Visit: Yes Status: Acute Code(s): A41.9 - SEPSIS, UNSPECIFIED ORGANISM SNOMED Code(s): 90171427 (4) UTI (urinary tract infection) Current Visit: Yes Status: Acute Code(s): N39.0 - URINARY TRACT INFECTION, SITE NOT SPECIFIED SNOMED Code(s): 89728207 Plan: 1patient presented to hospital with sepsis in this patient who did have fever elevated white count meeting criteria for SIRS source is ESBL E. coli UTI. 2patient with ESBL E. coli bacteremia source is UTI. 3blood culture has been repeated document clearance currently pending 4 ultrasound the kidney bladder area with no evidence of any hydronephrosis stone or abscess. 5patient currently being treated n meropenem 500 Q6 will need a midline for outpatient IV antibiotics on discharge Dictation was produced using [employer] dictation software. please excuse any grammatical, word or spelling errors. Time with Patient: Less than 30
[2024-07-21 09:28] LABS: HCT 31.7 % (39.6-50.0); HGB 10.4 g/dL (13.0-17.0); MCHC 32.8 g/dL (32.0-37.0); MCV 97.5 FL (80.0-97.0); Mean Platelet Volume 9.7 FL (9.5-12.2); NRBC Per 100 WBC 0 X 10*3/uL (0.00-0.01); Platelet Count 237 X 10*3/uL (140-440); RBC 3.25 X 10*6/uL (4.40-5.60); RDW 12.7 % (11.5-14.5); WBC 11.79 X 10*3/uL (4.50-10.00)
[2024-07-21 11:27] LABS: BUN/Creat Ratio 6.71 Ratio (12.00-20.00); Blood Urea Nitrogen 4.7 mg/dL (9.0-27.0); Carbon Dioxide 25.6 mmol/L (21.6-31.8); Chloride 104 mmol/L (96-109); Glucose 100 mg/dL (70-110); Potassium 3.7 mmol/L (3.5-5.5); Sodium 140 mmol/L (135-145)
[2024-07-21 11:28] LABS: Calcium 8.6 mg/dL (8.7-10.3)
--- NOTE | 2024-07-21 13:06 | P.PN ---
Subjective Hospital course: Patient is a 68-year-old male came in with fever urinary frequency urgency and dysuria. Patient was also quite weak and was also confused last night. Patient has history of UTIs in the past although denies any urinary retention or BPH. Patient did take a course of oral antibiotics by PCP urine is significantly abnormal with WBC of greater than 192 WBC clumps. Parents patient serum sodium is 128 patient does take Lasix at home I do not have any echocardiogram or BNP available at this time chest x-ray did not show any infiltrate. 07/18/24: Patient is seen and examined at bedside. Vital signs are stable, his blood pressure today is 146/80. Labs today show anion gap 9.3, creatinine 0.7, sodium 135. Blood culture shows Class A ESBL E. coli. Urine culture shows gram- negative bacilli. 07/19/24: Patient evaluated today. His temperature is 100.2 F, oxygen saturation 91% on room air. Labs today show hemoglobin 10.4, BUN 7.1, anion gap 9.9. 07/20/24: Patient examined at bedside. His blood pressure is 161/82 and is satura ting at 93% on room air. Labs today show WBC 10.67, hemoglobin 10.1, BUN 5.9, sodium 141. urine culture shows ESBL E. coli. Abdomen ultrasound showed no hydronephrosis or nephrolithiasis, stable right renal cyst. 07/21 Patient feels improved, his appetite is better His urinary symptoms are clearing up He had good bowel movement Good appetite No new complaint He will need IV antibiotics upon discharge per ID team Objective - Vital Signs Vital signs: Vital Signs Temp 98.7 F 07/21/24 11:46 Pulse 74 07/21/24 11:46 Resp 16 07/21/24 11:46 BP 155/81 07/21/24 11:46 Pulse Ox 95 07/21/24 11:46 FiO2 Intake & Output 07/20/24 07/21/24 07/21/24 18:59 06:59 18:59 Intake Total 1800 1939 240 Balance 1800 194 240 Intake: Intake, IV Titration 1400 Amount Meropenem 500 mg In 200 Sodium Chloride 0.9% 100 ml @ 33.333 mls/hr IVPB Q6H [facility] Rx#:[id number] Sodium Chloride 0.9% 1, 1200 000 ml @ 100 mls/hr IV . Q10H [facility] Rx#:[id number] Oral 1800 540 240 Other: Voiding Method Toilet Toilet Toilet Urinal Urinal Urinal # Voids 5 2 # Bowel Movements 2 - Exam GENERAL: The patient is alert and oriented x3, not in any acute distress. Well developed, well nourished. HEENT: Pupils are round and equally reacting to light. EOMI. No scleral icterus. No conjunctival pallor. Normocephalic, atraumatic. No pharyngeal erythema. No thyromegaly. CARDIOVASCULAR: S1 and S2 present. No murmurs, rubs, or gallops. PULMONARY: Chest is clear to auscultation, no wheezing , no crackles. ABDOMEN: Soft, nontender, nondistended, normoactive bowel sounds. No palpable organomegaly. MUSCULOSKELETAL: No joint swelling or deformity. EXTREMITIES: No cyanosis, clubbing, or pedal edema. NEUROLOGICAL: Gross neurological examination did not reveal any focal deficits. SKIN: No rashes. no petechiae. - Labs CBC & Chem 7: 07/21/24 05:26 07/21/24 05:26 Labs: Abnormal Lab Results - Last 24 Hours (Table) 07/21/24 07/21/24 Range/Units 05:26 05:26 WBC 11.79 H (4.50-10.00) X 10*3/uL RBC 3.25 L (4.40-5.60) X 10*6/uL Hgb 10.4 L (13.0-17.0) g/dL Hct 31.7 L (39.6-50.0) % MCV 97.5 H (80.0-97.0) FL BUN 4.7 L (9.0-27.0) mg/dL BUN/Creatinine Ratio 6.71 L (12.00-20.00) Ratio Calcium 8.6 L (8.7-10.3) mg/dL Microbiology - Last 24 Hours (Table) 07/19/24 10:44 Blood Culture - Preliminary Blood 07/17/24 07:53 Blood Culture - Preliminary Blood Assessment and Plan Assessment: Active: #. Sepsis secondary to urinary tract infection Blood culture shows Class A ESBL E. coli Urine culture shows ESBL E. coli Abdomen ultrasound showed no hydronephrosis or nephrolithiasis, stable right renal cyst Rocephin discontinued Continue meropenem 500 mg every IVPB 6 hours Repeat Blood culture ordered ID is following, recommend midline and IV antibiotics on discharge Schedule Midline IV insertion #. Hypovolemic hyponatremia, resolved #. Nausea and vomiting Continue ondansetron 4 mg IVP every 8 hours as needed Chronic: #. Coronary artery disease #. Hypertension #. Hyperlipidemia #. Depression #. Gastroesophageal reflux disease Continue atorvastatin 40 mg p.o. at bedtime, clopidogrel 75 mg p.o. daily, escitalopram 20 mg p.o. daily, ezetimibe 10 mg p.o. at bedtime, trazodone 200 mg p.o. at bedtime, lisinopril 5 mg PO daily F: 0.9 normal saline at 100 mL/h E: Replete as required N: Regular diet DVT prophylaxis: Lovenox 40 mg SQ daily GI prophylaxis: Pantoprazole 40 mg p.o. BID
--- NOTE | 2024-07-21 14:48 | P.PN ---
Subjective Progress Note Date: 07/21/24 Principal diagnosis: Reason for follow-up is ESBL E. coli UTI and bacteremia Patient is a 68-year-old male with a past medical history significant for hypertension hyperlipidemia osteoarthritis sleep apnea coronary disease, presenting to the hospital for evaluation of fever urinary urgency and frequency, patient did have positive blood culture with ESBL E. coli prompting this consultation. On today's evaluation that is 07/21/2024, Patient is afebrile patient is cu rrently on room air and denies having any shortness of breath, the patient denies any chest pain or cough, the patient denies any nausea vomiting did not have any abdominal pain and no diarrhea urinary symptom has improved as well. Patient white count is 11.79 creatinine 0.7 blood cultures been negative Objective - Vital Signs Vital signs: Vital Signs Temp 98.7 F 07/21/24 11:46 Pulse 74 07/21/24 11:46 Resp 16 07/21/24 11:46 BP 155/81 07/21/24 11:46 Pulse Ox 95 07/21/24 11:46 FiO2 Intake & Output 07/20/24 07/21/24 07/21/24 18:59 06:59 18:59 Intake Total 1800 1940 240 Balance 1800 1940 240 Intake: Intake, IV Titration 1400 Amount Meropenem 500 mg In 200 Sodium Chloride 0.9% 100 ml @ 33.333 mls/hr IVPB Q6H [facility] Rx#:[id number] Sodium Chloride 0.9% 1, 1200 000 ml @ 100 mls/hr IV . Q10H [facility] Rx#:[id number] Oral 1800 540 240 Other: Voiding Method Toilet Toilet Toilet Urinal Urinal Urinal # Voids 5 2 # Bowel Movements 2 - Exam GENERAL DESCRIPTION: An elderly male lying in bed in no distress RESPIRATORY SYSTEM: Unlabored breathing , decreased breath sounds at bases HEART: S1 S2 regular rate and rhythm , ABDOMEN: Soft , no tenderness EXTREMITIES: No edema feet - Labs CBC & Chem 7: 07/21/24 05:26 07/21/24 05:26 Labs: Abnormal Lab Results - Last 24 Hours (Table) 07/21/24 07/21/24 Range/Units 05:26 05:26 WBC 11.79 H (4.50-10.00) X 10*3/uL RBC 3.25 L (4.40-5.60) X 10*6/uL Hgb 10.4 L (13.0-17.0) g/dL Hct 31.7 L (39.6-50.0) % MCV 97.5 H (80.0-97.0) FL BUN 4.7 L (9.0-27.0) mg/dL BUN/Creatinine Ratio 6.71 L (12.00-20.00) Ratio Calcium 8.6 L (8.7-10.3) mg/dL Microbiology - Last 24 Hours (Table) 07/19/24 10:44 Blood Culture - Preliminary Blood 07/17/24 07:53 Blood Culture - Preliminary Blood Assessment and Plan (1) E coli bacteremia Current Visit: Yes Status: Acute Code(s): R78.81 - BACTEREMIA; B96.20 - UNSP ESCHERICHIA COLI THE CAUSE OF DISEASES CLASSD [facility] SNOMED Code(s): 094987596037 (2) ESBL (extended spectrum beta-lactamase) producing bacteria infection Current Visit: Yes Status: Acute Code(s): A49.9 - BACTERIAL INFECTION, UNSPE CIFIED; Z16.12 - EXTENDED SPECTRUM BETA LACTAMASE (ESBL) RESISTANCE SNOMED Code(s): 025894181 (3) Sepsis Current Visit: Yes Status: Acute Code(s): A41.9 - SEPSIS, UNSPECIFIED O RGANISM SNOMED Code(s): 03258355 (4) UTI (urinary tract infection) Current Visit: Yes Status: Acute Code(s): N39.0 - URINARY TRACT INFECTION, SITE NOT SPECIFIED SNOMED Code(s): 22748965 Plan: 1patient presented to hospital with sepsis in this patient who did have fever elevated white count meeting criteria for SIRS source is ESBL E. coli UTI. 2patient with ESBL E. coli bacteremia source is UTI. 3blood culture has been repeated and negative so far 4 ultrasound the kidney bladder area with no evidence of any hydronephrosis stone or abscess. 5patient currently on meropenem 500 Q6 will order midline plan is for 10-day course of Invanz 1 g daily on discharge Dictation was produced using [employer] dictation software. please excuse any grammatical, word or spelling errors. Time with Patient: Less than 30
[2024-07-22 07:30] VITALS: RESP 19
[2024-07-22 09:01] LABS: BUN/Creat Ratio 9.71 Ratio (12.00-20.00); Blood Urea Nitrogen 6.8 mg/dL (9.0-27.0); Calcium 8.8 mg/dL (8.7-10.3); Carbon Dioxide 25.7 mmol/L (21.6-31.8); Chloride 103 mmol/L (96-109); Glucose 103 mg/dL (70-110); Potassium 3.8 mmol/L (3.5-5.5); Sodium 140 mmol/L (135-145)
[2024-07-22 09:33] LABS: HGB 10.8 g/dL (13.0-17.0); MCH 32.9 pg (27.0-32.0); MCHC 33.8 g/dL (32.0-37.0); MCV 97.6 FL (80.0-97.0); Mean Platelet Volume 9.9 FL (9.5-12.2); NRBC Per 100 WBC 0 X 10*3/uL (0.00-0.01); Platelet Count 293 X 10*3/uL (140-440); RBC 3.28 X 10*6/uL (4.40-5.60); RDW 12.9 % (11.5-14.5); WBC 9.12 X 10*3/uL (4.50-10.00)
[2024-07-22] MEDS: lisinopriL 5 MG TAB PO STA (10:59)
[2024-07-22 13:26] VITALS: BP 151/89; PULSE 69; TEMP 98.4
[2024-07-22] MEDS: ERTAPENEM 1 GM in SODIUM CHLORIDE 0.9% 50 ML IVPB SCH (15:32)
[2024-07-23] MEDS ORDERED: lisinopriL 10 MG TAB PO SCH (09:00)
--- NOTE | 2024-07-24 08:56 | P.PN ---
Subjective Progress Note Date: 07/22/24 Principal diagnosis: Reason for follow-up is ESBL E. coli UTI and bacteremia Patient is a 68-year-old male with a past medical history significant for hypertension hyperlipidemia osteoarthritis sleep apnea coronary disease, presenting to the hospital for evaluation of fever urinary urgency and frequency, patient did have positive blood culture with ESBL E. coli prompting this consultation. On today's evaluation that is 07/22/2023, patient has been afebrile, patient is breathing comfortably and is currently on room air, patient denies having any significant cough no chest pain, patient denies nausea vomiting or diarrhea and no abdominal pain, did have improvement his urinary symptoms. Patient white count normalized to 9.12, creatinine 0.7 blood culture repeat has been negative so far Objective - Vital Signs Vital signs: Vital Signs Temp 98.1 F 07/22/24 07:00 Pulse 61 07/22/24 07:00 Resp 19 07/22/24 07:00 BP 167/97 07/22/24 07:00 Pulse Ox 96 07/22/24 07:00 FiO2 Intake & Output 07/21/24 07/22/24 07/22/24 18:59 06:59 18:59 Intake Total 2320 Balance 2320 Intake: Oral 2320 Other: Voiding Method Toilet Toilet Urinal Urinal # Voids 5 1 # Bowel Movements 2 - Exam GENERAL DESCRIPTION: An elderly male lying in bed in no distress RESPIRATORY SYSTEM: Unlabored breathing , decreased breath sounds at bases HEART: S1 S2 regular rate and rhythm , ABDOMEN: Soft , no tenderness EXTREMITIES: No edema feet - Labs CBC & Chem 7: 07/22/24 04:29 07/22/24 04:29 Labs: Abnormal Lab Results - Last 24 Hours (Table) 07/21/24 07/22/24 07/22/24 Range/Units 05:26 04:29 04:29 RBC 3.28 L (4.40-5.60) X 10*6/uL Hgb 10.8 L (13.0-17.0) g/dL Hct 32.0 L (39.6-50.0) % MCV 97.6 H (80.0-97.0) FL MCH 32.9 H (27.0-32.0) pg BUN 4.7 L 6.8 L (9.0-27.0) mg/dL BUN/Creatinine Ratio 6.71 L 9.71 L (12.00-20.00) Ratio Calcium 8.6 L (8.7-10.3) mg/dL Microbiology - Last 24 Hours (Table) 07/19/24 10:44 Blood Culture - Preliminary Blood Assessment and Plan (1) E coli bacteremia Status: Acute Code(s): R78.81 - BACTEREMIA; B96.20 - UNSP ESCHERICHIA COLI THE CAUSE OF DISEASES CLASSD [facility] SNOMED Code(s): 740128107965 (2) ESBL (extended spectrum beta-lactamase) producing bacteria infection Status: Acute Code(s): A49.9 - BACTERIAL INFECTION, UNSPECIFIED; Z16.12 - EXTENDED SPECTRUM BETA LACTAMASE (ESBL) RESISTANCE SNOMED Code(s): 164472504 (3) Sepsis Status: Acute Code(s): A41.9 - SEPSIS, UNSPECIFIED ORGANISM SNOMED Code(s): 31601290 (4) UTI (urinary tract infection) Status: Acute Code(s): N39.0 - URINARY TRACT INFECTION, SITE NOT SPECIFIED SNOMED Code(s): 91975576 Plan: 1patient presented to hospital with sepsis in this patient who did have fever elevated white count meeting criteria for SIRS source is ESBL E. coli UTI. 2patient with ESBL E. coli bacteremia source is UTI. 3blood culture has been repeated and negative so far 4 ultrasound the kidney bladder area with no evidence of any hydronephrosis stone or abscess. 5patient did get a midline, plan is for 10-day course of Invanz 1 g daily on discharge and close outpatient follow-up Dictation was produced using [employer] dictation software. please excuse any grammatical, word or spelling errors. Time with Patient: Less than 30
--- NOTE | 2024-07-24 22:10 | P.DS ---
Providers Date of admission: 07/18/24 09:41 Attending physician: Steph Azul Consults: 07/19/24 11:52 Consult Physician Routine Consulting Provider: Cat Jimenez Consult Reason/Comments: ESBL E.coli UTI Do you want consulting provider notified?: Yes Primary care physician: [facility] Hospital Course: Final Diagnosis Sepsis secondary to urinary tract infection E. Coli ESBL Bacteremia Hypovolemic Hyponatremia Nausea and vomiting due to sepsis resolved Coronary artery disease history with prior stenting Hypertension Hyperlipidemia Depression Gastroesophageal reflux disease Chronic alcohol use Former smoker Sleep apnea with CPAP use Discharge Disposition Stable for discharge home. Midline IV access in place and patient will complete course of antibiotics with 10 days of IV invanz. Patient to follow up with Dr Jimenez in the office. Repeat blood work. Hospital Course Patient is a 68-year-old male came in with fever urinary frequency urgency and dysuria. Patient was also quite weak and was also confused last night. Patient has history of UTIs in the past although denies any urinary retention or BPH. Patient did take a course of oral antibiotics by PCP urine is significantly abnormal with WBC of greater than 192 WBC clumps. Parents patient serum sodium is 128 patient does take Lasix at home. chest x-ray did not show any infiltrate. He was admitted to the hospital for acute UTI consult placed to infectious disease. Had positive blood cultures and urine culture showing ESBL E.Coli. Abdomen ultrasound showed no hydronephrosis or nephrolithiasis, stable right renal cyst. Patient renal function has remained normal this admission. He had midline placed and will continue course of antibiotics on discharge with 10 days of IV invanz. He received IV meropenem while inpatient. Please see medication reconciliation for a list of current medications. Thank you for allowing us to participate in the care of this patient. The impression and plan of care has been dictated by Susan Esposito Nurse Practitioner as directed. Dr. Zurdo MD I have performed a history and physical examination and medical decision making of this patient, discussed the same with the dictator, and agree with the dictators assessment and plan as written, documented as a scribe. Based on total visit time, I have performed more than 50% of this visit. Patient Condition at Discharge: Stable Plan - Discharge Summary Discharge Rx Participant: No New Discharge Prescriptions: New Ertapenem [INVanz] 1 gm IVPB Q24H 10 Days #10 each lisinopriL [Zestril] 10 mg PO DAILY #30 tab Continue Pantoprazole [Protonix] 40 mg PO BID Ezetimibe [Zetia] 10 mg PO HS Escitalopram [Lexapro] 20 mg PO DAILY Atorvastatin [Lipitor] 40 mg PO HS Multivitamins, Thera [Multivitamin (formulary)] 1 tab PO DAILY Ibuprofen [Motrin] 800 mg PO TID PRN PRN Reason: Pain traZODone HCL [Desyrel] 200 mg PO HS Clopidogrel [Plavix] 75 mg PO DAILY Furosemide [Lasix] 20 mg PO DAILY #90 tab Discontinued lisinopriL [Zestril] 5 mg PO DAILY Discharge Medication List Atorvastatin [Lipitor] 40 mg PO HS 10/03/23 [History] Clopidogrel [Plavix] 75 mg PO DAILY 10/03/23 [History] Escitalopram [Lexapro] 20 mg PO DAILY 10/03/23 [History] Ezetimibe [Zetia] 10 mg PO HS 10/03/23 [History] Pantoprazole [Protonix] 40 mg PO BID 10/03/23 [History] Furosemide [Lasix] 20 mg PO DAILY #90 tab 03/29/24 [Rx] Ibuprofen [Motrin] 800 mg PO TID PRN 07/17/24 [History] Multivitamins, Thera [Multivitamin (formulary)] 1 tab PO DAILY 07/17/24 [History] traZODone HCL [Desyrel] 200 mg PO HS 07/17/24 [History] Ertapenem [INVanz] 1 gm IVPB Q24H 10 Days #10 each 07/22/24 [Rx] lisinopriL [Zestril] 10 mg PO DAILY #30 tab 07/22/24 [Rx] Follow up Appointment(s)/Referral(s): [facility] MD [Primary Care Provider] - 1-2 days (Please call office to make follow up appointment.) Cat Jimenez MD [STAFF PHYSICIAN] - 07/31/24 2:45 pm () Ambulatory/Diagnostic Orders: Basic Metabolic Panel [LAB.AMB] Time Frame: 3 Days, Location: None Selected Complete Blood Count w/diff [LAB.AMB] Location: None Selected Activity/Diet/Wound Care/Special Instructions: Patient can discharge home after midline is placed and IV antibiotics set up Discharge/Stand Alone Forms: AA Meetings [facility] Discharge Disposition: HOME WITH HOME HEALTH SERVICES
== END 2024-07-22 16:57 | disposition home health service (06) | DRG 872 ==
LOC: EC 07:43 → 5NMEDONC 09:23 → OBSVTOIN 07-18 09:41
PROVIDERS: ADMIT Hospitalist; ATTEND Hospitalist
PROC: 05HC33Z Insertion of Infusion Device into Left Basilic Vein, Percutaneous Approach (ICD-10-PCS; principal; 2024-07-22 07:30)
DX: A41.51 Sepsis due to Escherichia coli [E. coli] (principal); N39.0 Urinary tract infection, site not specified; Z16.12 Extended spectrum beta lactamase (ESBL) resistance; E87.1 Hypo-osmolality and hyponatremia; R39.15 Urgency of urination; I10 Essential (primary) hypertension; I25.10 Atherosclerotic heart disease of native coronary artery without angina pectoris; E78.5 Hyperlipidemia, unspecified; G47.33 Obstructive sleep apnea (adult) (pediatric); M19.90 Unspecified osteoarthritis, unspecified site; E86.1 Hypovolemia; F32.A Depression, unspecified; K21.9 Gastro-esophageal reflux disease without esophagitis; R11.2 Nausea with vomiting, unspecified; Z96.641 Presence of right artificial hip joint; Z79.82 Long term (current) use of aspirin; Z79.899 Other long term (current) drug therapy; Z87.891 Personal history of nicotine dependence; Z79.02 Long term (current) use of antithrombotics/antiplatelets; Z87.440 Personal history of urinary (tract) infections
CPT/HCPCS: 36410; 36415; 70450; 71046; 76770; 76937; 80048; 80053; 81001; 83605; 85025; 85027; 87040; 87077; 87086; 87186; 87636; 93005; 94760; 96361; 96365; 96366; 96367; 99285